=== PATIENT | female | born 1960 | race Caucasian/White ===

== ENCOUNTER 2016-07-07 17:31 | Inpatient (IN) ==
--- NOTE | 2016-07-07 18:07 | Emergency Department Note ---
Disposition Clinical Impression: Abnormal EKG, Elevated troponin Chest pain Qualifiers: Chest pain type: unspecified Qualified Code(s): R07.9 - Chest pain, unspecified Dyspnea Qualifiers: Dyspnea type: unspecified Qualified Code(s): R06.00 - Dyspnea, unspecified Disposition: Admitted As Inpatient Condition: Fair Time of Disposition: 18:58 Chest Pain HPI - General Chief Complaint: ED Chest Pain Stated Complaint: chest pain Time Seen by Provider: 07/07/16 17:46 Source: patient Mode of arrival: ambulatory Limitations: no limitations Vital Signs Reviewed: Yes Nursing Notes Reviewed: Yes - History of Present Illness HPI Narrative: Patient is a 56-year-old female with past medical history of CVA, CAD, previous SC, stent 6, diabetes, hypertension, hyperlipidemia. She presents today due to chest pain and shortness of breath. Patient has been having shortness of breath for the past week and centered chest pressure. She admits to radiation under both arms. Also admits to sweating. Denies any nausea, vomiting, fevers , abdominal pain, dysuria, hematuria. She took 325 mg aspirin prior to arrival. She did not take any nitroglycerin at home because she states that it makes her blood pressure go too low. Severity scale (1-10): 10 - Related Data Home Medications Medication Instructions Recorded Confirmed Amitriptyline [Elavil] 25 mg PO BID 01/14/15 07/07/16 Clopidogrel [Plavix] 75 mg PO DAILY 01/14/15 07/07/16 Ezetimibe [Zetia] 10 mg PO DAILY 01/14/15 07/07/16 Furosemide [Lasix] 40 mg PO DAILY 01/14/15 07/07/16 GlipiZIDE [Glucotrol] 5 mg PO DAILY 01/14/15 07/07/16 Isosorbide MONOnitrate (24 HR) 30 mg PO DAILY 01/14/15 07/07/16 [Imdur] LORazepam [Ativan] 1 mg PO BID 01/14/15 07/07/16 Metoprolol XL (24 HR) Succ [Toprol 25 mg PO DAILY 01/14/15 07/07/16 XL] Pantoprazole Sodium [Protonix] 40 mg PO DAILY 01/14/15 07/07/16 Ranolazine [Ranexa] 1,000 mg PO BID 01/14/15 07/07/16 Rosuvastatin [Crestor] 20 mg PO HS 01/14/15 07/07/16 Topiramate [Topamax] 200 mg PO BID 01/14/15 07/07/16 Ammonium Lactate [Ammonium Lactate] 1 appl TP BID 07/07/16 07/07/16 Cholecalciferol (Vitamin D3) 2,000 unit PO DAILY 07/07/16 07/07/16 [Vitamin D] Potassium Chloride [K-Tab ER] 20 meq PO DAILY 07/07/16 07/07/16 Doxycycline Hyclate [Vibramycin] 100 mg PO BID 07/08/16 07/08/16 Allergies Allergy/AdvReac Type Severity Reaction Status Date / Time metformin Allergy Anaphylaxis Verified 08/12/15 20:36 sulfamethoxazole Allergy Hives Verified 07/07/16 17:38 [From Bactrim] trimethoprim [From Bactrim] Allergy Hives Verified 07/07/16 17:38 nitroglycerin AdvReac Hypotension Verified 08/12/15 20:36 [From Nitroglyn] NOVACAINE Allergy Hives Uncoded 08/12/15 20:36 All systems ED: reviewed and negative except as stated. Constitutional: Denies: fever Cardiovascular: Reports: chest pain, dyspnea on exertion. Denies: palpitations Respiratory: Reports: dyspnea. Denies: cough, wheezes Gastrointestinal: Denies: abdominal pain, nausea, vomiting, diarrhea Musculoskeletal: Denies: back pain Integumentary: Denies: rash Neurological: Denies: headache, weakness, numbness, paresthesias Chest Pain PMH - Past Medical History Medical history: Reports: CVA, diabetes, GI bleed, hyperlipidemia, hypertension , myocardial infarction Surgical history: Reports: cholecystectomy, coronary bypass (CABG), hysterectomy Psychiatric history: Reports: no psych history - Social History Smoking Status: Former smoker Alcohol use: Reports: none Drug use: Reports: none Physical Exam - General Limitations: no limitations General appearance: alert, in no apparent distress - Head Head exam: atraumatic, normocephalic, normal inspection - Eye Eye exam: Present: normal appearance, PERRL, EOMI - ENT ENT exam: normal exam, normal oropharynx, mucous membranes moist - Neck Neck exam: Present: normal inspection, full ROM, trachea midline - Respiratory Respiratory exam: Present: normal lung sounds bilaterally - Cardiovascular Cardiovascular exam: Present: regular rate, normal rhythm, normal heart sounds - Abdominal Exam Abdominal exam: Present: soft, Non-Tender. Absent: tenderness, distention, guarding, rebound, rigidity - Extremities Exam Extremities exam: Present: normal inspection, full ROM. Absent: tenderness, pedal edema - Neurological Exam Neurological exam: Present: alert, oriented X3 - Psychiatric Psychiatric exam: Present: normal affect, normal mood - Skin Skin exam: Present: warm, dry, intact, normal color Course Course Narrative: Patient mildly tachycardic, mildly hypertensive. Physical exam was benign. Patient rates her current pain a 2 out of 10. She is declined any nitroglycerin. She is also declined any morphine at this time. She had an EKG performed which showed ST depression in V4, V5, also new T-wave changes in lead V2, V3. She is alert and aspirin 325 mg today. We will obtain cardiac workup including basic blood work, troponin, chest x-ray. Discussed admission with the patient already due to chest pain or shortness of breath with EKG changes. She is agreeable with this plan. Assuming trop negative before workup, HEART score is 5. 18:56 troponin elevated at 0.12. Astrophysics Professor on-call, Dr. Lubin, was contacted. He recommended starting heparin at this time. Patient was informed of results and she has requested morphine, we will give her morphine 4 mg. However, she continues to decline any nitroglycerin at this time. Chest x-ray negative for any acute cardiopulmonary process but did show left lung nodule. We will admit to medicine with cardiology to consult. Vital Signs Temperature 98.2 F 07/07/16 17:34 Pulse Rate 105 07/07/16 17:34 Respiratory Rate 18 07/07/16 17:34 Blood Pressure 142/88 07/07/16 17:34 O2 Sat by Pulse Oximetry 99 07/07/16 17:34 Temperature 97.5 F L 07/08/16 08:29 Pulse Rate 83 07/08/16 08:29 Respiratory Rate 15 07/08/16 08:29 Blood Pressure 127/81 07/08/16 08:29 O2 Sat by Pulse Oximetry 99 07/08/16 08:29 Oxygen Delivery Oxygen Delivery Room Air Chest Pain - [facility] Narrative Medical decision making narrative: Patient mildly tachycardic, mildly hypertensive. Physical exam was benign. Patient rates her current pain a 2 out of 10. She is declined any nitroglycerin. She is also declined any morphine at this time. She had an EKG performed which showed ST depression in V4, V5, also new T-wave changes in lead V2, V3. She is alert and aspirin 325 mg today. We will obtain cardiac workup including basic blood work, troponin, chest x-ray. Discussed admission with the patient already due to chest pain or shortness of breath with EKG changes. She is agreeable with this plan. Assuming trop negative before workup, HEART score is 5. 18:56 troponin elevated at 0.12. Astrophysics Professor on-call, Dr. Lubin, was contacted. He recommended starting heparin at this time. Patient was informed of results and she has requested morphine, we will give her morphine 4 mg. However, she continues to decline any nitroglycerin at this time. Chest x-ray negative for any acute cardiopulmonary process but did show left lung nodule. We will admit to medicine with cardiology to consult. - Medical Records Medical records reviewed: Yes I reviewed the patient's medical records. - Lab Data Lab results reviewed: Yes I reviewed the patient's lab results. Result diagrams: 07/08/16 05:40 07/08/16 05:40 Lab Results 07/07/16 07/07/16 07/07/16 Range/Units 18:02 18:02 18:02 WBC 8.4 (4.3-11.1) K/mcL RBC 4.05 (3.82-4.97) M/mcL Hgb 12.6 (11.5-15.4) g/dL Hct 37.6 (35.3-44.9) % MCV 92.8 (83.0-100.0) fL MCH 31.1 (28.0-33.3) pg MCHC 33.5 (31.6-35.5) g/dL RDW 13.3 (11.5-14.5) % Plt Count 209 (140-400) K/mcL MPV 9.5 (9.4-12.4) fL Immature Gran % 0.1 (0-4) % Seg Neutrophils % 47.5 % Lymphocytes % 42.5 % Monocytes % 7.2 % Eosinophils % 2.2 % Basophils % 0.5 % Neutrophils # 4.0 (1.6-8.9) K/mcL Lymphocytes # 3.6 (0.6-4.6) K/mcL Monocytes # 0.6 (0.0-1.3) K/mcL Eosinophils # 0.2 (0.0-0.6) K/mcL Basophils # 0.0 (0.0-0.2) K/mcL PT 11.2 (9.4-12.1) Seconds INR 1.0 APTT 29.7 (26.0-36.0) Seconds Sodium 142 (136-145) mEq/L Potassium 3.6 (3.5-4.5) mEq/L Chloride 114 H (98-109) mEq/L Carbon Dioxide 20 (19-29) mEq/L BUN 35 H (7-20) mg/dL Creatinine 1.28 H (0.57-1.11) mg/dL Est GFR ( Amer) 52 L (> 60) Est GFR (Non-Af Amer) 43 L (> 60) BUN/Creatinine Ratio 27 H (6-26) Glucose 142 H (70-99) mg/dL Calculated Osmolality 304 H (280-300) Calcium 9.2 (8.6-10.8) mg/dL Phosphorus 3.0 (2.3-4.7) mg/dL Magnesium 2.0 (1.6-2.6) mg/dL Troponin I (0-0.03) ng/mL B-Natriuretic Peptide (0-100) pg/mL 07/07/16 07/07/16 Range/Units 18:02 18:02 WBC (4.3-11.1) K/mcL RBC (3.82-4.97) M/mcL Hgb (11.5-15.4) g/dL Hct (35.3-44.9) % MCV (83.0-100.0) fL MCH (28.0-33.3) pg MCHC (31.6-35.5) g/dL RDW (11.5-14.5) % Plt Count (140-400) K/mcL MPV (9.4-12.4) fL Immature Gran % (0-4) % Seg Neutrophils % % Lymphocytes % % Monocytes % % Eosinophils % % Basophils % % Neutrophils # (1.6-8.9) K/mcL Lymphocytes # (0.6-4.6) K/mcL Monocytes # (0.0-1.3) K/mcL Eosinophils # (0.0-0.6) K/mcL Basophils # (0.0-0.2) K/mcL PT (9.4-12.1) Seconds INR APTT (26.0-36.0) Seconds Sodium (136-145) mEq/L Potassium (3.5-4.5) mEq/L Chloride (98-109) mEq/L Carbon Dioxide (19-29) mEq/L BUN (7-20) mg/dL Creatinine (0.57-1.11) mg/dL Est GFR ( Amer) (> 60) Est GFR (Non-Af Amer) (> 60) BUN/Creatinine Ratio (6-26) Glucose (70-99) mg/dL Calculated Osmolality (280-300) Calcium (8.6-10.8) mg/dL Phosphorus (2.3-4.7) mg/dL Magnesium (1.6-2.6) mg/dL Troponin I 0.12 H* (0-0.03) ng/mL B-Natriuretic Peptide 39 (0-100) pg/mL - Radiology Data Radiology results reviewed: Yes I reviewed the patient's radiology results. Chest X-Ray 07/07/16 17:49 IMPRESSION: 1. No evidence of acute cardiopulmonary disease. 2. Left lower lobe nodule, present on CT scan in 2013. Ensure appropriate follow-up has occurred based on the recommendations on the prior CT scan. If no follow-up has been performed, a CT scan of the chest may be of benefit. 3. Hiatal hernia. D/ / Chacorta Rutherford MD / Chacorta Rutherford MD Interpreting Provider: Chacorta Rutherford MD - EKG Data EKG attestation: Yes I reviewed and interpreted this EKG. EKG results narrative: 07/07/2016 at 17:34. Sinus tachycardia. Rate 111. NJ 144. QRS 105. QTC 402. Normal axis. New ST depression in V4, V5, new T-wave changes in V2, V3. Previous EKG was 01/14/2015 Heart Score - Score History: Moderately Suspicious EKG: Non Specific repolarisation Disturbance Age: 45-65 Risk Factors: Equal/Greater than 3 risk factor or history of atherosclerotic disease Troponin: Less than normal limit HEART Score Total: 5 S.B.A.R. - [email or web address].AJoel Situation: Demographics, MOA Background: Presenting Complaint, Relevant PMH, Meds, & Allergies Assessment: Vital Signs, Course and respsone to treatment, Exam Concerns, Patient/Family Expectation, Pertinant Lab Results, Outstanding Labs Recommendation: Barrier(s) to disposition, Recommendation based on pending studies, treatments, or consults S.B.A.RLois Report Given to: Dr. Shani Vee Repor Time: 18:59 Attestation Statement - Attestation Attestation: I examined this patient and my medical decision-making was reviewed with the FUR STRETCHER/PA/Advanced Practice Nurse/Resident Physician. I agree with the documented findings, disposition and treatment plan as described except to the extent set forth below. Patient emergency department with chest pain. Intermittent exertional. She has an extensive cardiac history with her last catheterization a couple of years ago. On examination she is in no acute distress with stable vital signs. Her initial EKG shows some new anterolateral depressions. Plan. Cardiac workup. Patient has positive troponin. She has been discussed with cardiology. Heparin ordered. Patient admitted to medicine. 30 minutes critical-care exclusive of separately billable procedures.
[2016-07-07 18:09] LABS: Basophils % 0.5 %; Eosinophils # 0.2 K/mcL (0.0-0.6); Eosinophils % 2.2 %; Hematocrit 37.6 % (35.3-44.9); Hemoglobin 12.6 g/dL (11.5-15.4); Immature Granulocytes % 0.1 % (0-4); Lymphocytes # 3.6 K/mcL (0.6-4.6); Lymphocytes % 42.5 %; Mean Corpuscular HGB Conc 33.5 g/dL (31.6-35.5); Mean Corpuscular Hemoglobin 31.1 pg (28.0-33.3); Mean Corpuscular Volume 92.8 fL (83.0-100.0); Mean Platelet Volume 9.5 fL (9.4-12.4); Monocytes # 0.6 K/mcL (0.0-1.3); Monocytes % 7.2 %; Platelet Count 209 K/mcL (140-400); Red Blood Count 4.05 M/mcL (3.82-4.97); Red Cell Distribution Width 13.3 % (11.5-14.5); Segmented Neutrophils % 47.5 %
[2016-07-07 18:16] LABS: Prothrombin Time 11.2 Seconds (9.4-12.1)
[2016-07-07 18:19] LABS: Activated Partial Thrombo Time 29.7 Seconds (26.0-36.0)
[2016-07-07 18:21] LABS: Calcium 9.2 mg/dL (8.6-10.8); Potassium 3.6 mEq/L (3.5-4.5)
[2016-07-07] MEDS ORDERED: *HR* Heparin 5,000 UNIT/ML VIAL IVP PRN ×2 (18:53)
[2016-07-07] MEDS ORDERED: *HR* Heparin 5,000 UNIT/ML VIAL IVP ONE (18:53)
[2016-07-07] MEDS ORDERED: *HR* Morphine 2 MG/ML SYRINGE IVP ONE (19:00)
[2016-07-07] MEDS ORDERED: Heparin 25,000 UNIT/500 ML D5W 25,000 UNIT/500 ML MLS IVC SCH (19:00)
[2016-07-07] MEDS ORDERED: Acetaminophen 325 MG TABLET PO PRN (20:13)
[2016-07-07] MEDS ORDERED: Naloxone 0.4 MG/ML INJ IVP PRN (20:13)
[2016-07-07] MEDS ORDERED: Dextrose Gel 15 GM PO PRN ×2 (20:13)
[2016-07-07] MEDS ORDERED: Pantoprazole 40 MG VIAL IVP STA (20:13)
[2016-07-07] MEDS ORDERED: *HR* OxyCODONE Immed Rel 5 MG TABLET PO PRN (20:13)
[2016-07-07] MEDS ORDERED: *HR* Promethazine 25 MG/ML VIAL IVP PRN (20:13)
[2016-07-07] MEDS ORDERED: *HR* Metoprolol 5 MG/5 ML VIAL IVP PRN (20:13)
[2016-07-07] MEDS ORDERED: *HR* Dextrose 50 % in Water (Syg) 50 ML SYRINGE IVP PRN (20:13)
[2016-07-07] MEDS ORDERED: Nitroglycerin 0.4 MG TAB.SUBL SL PRN (20:13)
[2016-07-07] MEDS ORDERED: D5% in Water 1,000 ML IVC PRN (20:13)
[2016-07-07] MEDS ORDERED: Mag Hydrox/Al Hydrox/Simeth 30 ML UDC PO PRN (20:13)
--- NOTE | 2016-07-07 20:30 | Internal Med History&Physical ---
Date of Encounter: 07/07/16 Time of Encounter: 21:00 Assessment and Plan (1) Chest pain, rule out acute myocardial infarction Current visit: Yes Status: Acute . (2) Chest pain with moderate risk of acute coronary syndrome Current visit: Yes Status: Acute . (3) Elevated troponin I measurement Current visit: Yes Status: Acute . (4) CAD (coronary artery disease), [place] coronary artery Current visit: Yes Status: Chronic . Qualifiers: [place] vs. transplanted heart: [place] heart Associated angina: with unspecified angina Qualified Code(s): I25.119 - Atherosclerotic heart disease of [place] coronary artery with unspecified angina pectoris (5) History of PTCA Current visit: Yes Status: Chronic . (6) Hx of CABG Current visit: Yes Status: Chronic . (7) HTN (hypertension) Current visit: Yes Status: Chronic . Qualifiers: Hypertension type: essential hypertension Qualified Code(s): I10 - Essential (primary) hypertension (8) HLD (hyperlipidemia) Current visit: Yes Status: Chronic . Qualifiers: Hyperlipidemia type: mixed hyperlipidemia Qualified Code(s): E78.2 - Mixed hyperlipidemia (9) Type 2 diabetes mellitus Current visit: Yes Status: Chronic . Qualifiers: Diabetes mellitus complication status: with unspecified complications Diabetes mellitus terminal gauger supervisor insulin use: without alf use Qualified Code( s): E11.8 - Type 2 diabetes mellitus with unspecified complications (10) ESAU (acute kidney injury) Current visit: Yes Status: Acute . (11) Solitary pulmonary nodule Current visit: Yes Status: Chronic . (12) Anxiety as acute reaction to gross stress Current visit: Yes Status: Acute . (13) Anxiety associated with depression Current visit: Yes Status: Acute . (14) Nicotine dependence with nicotine-induced disorder Current visit: Yes Status: Chronic . Qualifiers: Nicotine product type: cigarettes Qualified Code(s): F17.219 - Nicotine dependence, cigarettes, with unspecified nicotine-induced disorders (15) COPD mixed type Current visit: Yes Status: Chronic . Internal Medicine - H&P: HPI Chief complaint: Chest pain. Difficulty breathing. Admitted From: Emergency Dept Plans for Post Hospital Care: Home History of present illness: Ms. Leonardo is a 56 year old female with significant history of COPD/PTCA-stents x6/CABG x3v/AMI, CVA/TIA, type II DM, HTN, HLD, CKD, h/o cervical Ca s/p DANIS, OA , OP/vit D def, h/o hidradenitis suppurativa, solitary pulmonary nodule, GERD, depression/anxiety, obesity, nicotine dependency, etc.. Patient is admitted to the [facility] via the emergency department which presents with complaints of chest pain. The patient presents with a significant history of atherosclerotic cardiovascular disease. She reports chest pain and shortness of breath intermittently, beginning in the last 5-7 days and progressively worsening. She presents today with central chest pressure like pain radiating into both arms associated with shortness of breath and diaphoresis. She denies any nausea or vomiting. Denies abdominal pain flank pain. Denies any fevers chills. Denies dysuria hematuria upper respiratory lower respiratory symptoms of cough or sputum production. Pain was severe was rated as a 10/10 in severity. Chest pain and dyspnea worsened with exertion. Nothing seemed to alleviate pain however when present. She took a full dose adult aspirin prior to her presentation to the ER. She also had taken her normal daily cardiac medications. These treatments included Ranexa Lipitor fish oil into her Toprol- XL Plavix aspirin Zetia. She did not take any sublingual nitroglycerin to address acute pain due to fear of acute hypotension which has happened in the past with this medication. The patient acknowledges significant in increase in gross personal stressors. This is cause some degree of constant worry and personal concerns as relates to herself and family. she focuses much of her current anxiety toward her estranged . Specifics are not disclosed. Findings in the ED noted the patient afebrile. Pulse 105 respirations 18 BP 142/88 O2 saturation 99% on room air. Telemetry demonstrated sinus tachycardia. Rate 111 bpm. EKG interpreted by ED staff suggested ST depression in V4 and V5, T-wave changes in lead V2 V3. Suggestive of ischemia. His EKG of record December 2014. Troponin returned to 0.12. WBC 8.4 hemoglobin 12.6 platelets 209,000. Differential normal. PT 11.2 INR 1 PTT 29.7. Metabolic panel benign except noted BUN 35 creatinine 1.2 weight 204 43. Glucose 142 osmolality 304. Chloride 114. Chest x-ray demonstrated no evidence of acute or active cardiopulmonary process. A left lower lobe nodule previously delineated on CT scanning in 2013 was noted. Hiatal hernia noted. Cardiology was consulted by ED staff and recommended initiation of intravenous heparin therapy and admission to complete the standard rule out for ACS/UA. The patient presents risk of further acute clinical decline and morbidity given her presenting chief complaints and comorbid conditions. Workup and treatments will proceed comprehensively. The patient was visited and interviewed and examined. Cumulative laboratory and radiographic data base was reviewed and considered. Consultative opinions will be sought as clinical circumstances justify. Initial consultative opinion has been requested and cardiology. Acute coronary syndrome/UA treatment protocols/surveillance initiated. Intravenous heparin drip initiated. In place of intravenous nitroglycerin drip , intravenous diltiazem drip will be provided to address unstable angina and nitrate hypersensitivity. Plan of care has been discussed in detail with patient. Questions were addressed. Hospital course will be dependent upon clinical findings, treatment response and potential consultative interventions. Given the patient's presenting concerns, past medical history, clinical findings and symptoms, she is admitted at this time to undergo further evaluation and disposition. Orders were written as per the computerized physician line ordering clinician system. Condition is serious. Prognosis is guarded. CODE STATUS is full. . Past Med Surg Social Fam HX - Past Medical History Source: old records reviewed Medical history: arthritis, cancer, CHF, COPD, coronary artery disease, CVA, diabetes, GERD, GI bleed, hyperlipidemia, hypertension, malignancy, myocardial infarction, TIA, other Psychiatric history: anxiety, depression, other - Past Surgical History Surgical History: angioplasty/stent, breast surgery, cancer surgery, cholecystectomy, coronary bypass (CABG), hysterectomy, other - Social History Smoking Status: Current every day smoker Packs per day: 1-2ppd x20+yrs Smokeless Tobacco Status: No Alcohol use: none, unknown Drug use: none Occupational status: unemployed Current living situation: Home, With Family Activity Level: Independent ambulation, Mostly sedentary Recent Out of Country Travel Within the Last 8 Weeks: No Exposure or Possible Exposure to Illness During Travel: No Internal Medicine - H&P: Meds Amitriptyline [Elavil] 25 mg PO BID 01/14/15 [History] Clopidogrel [Plavix] 75 mg PO DAILY 01/14/15 [History] Ezetimibe [Zetia] 10 mg PO DAILY 01/14/15 [History] Furosemide [Lasix] 40 mg PO DAILY 01/14/15 [History] GlipiZIDE [Glucotrol] 5 mg PO DAILY 01/14/15 [History] Isosorbide MONOnitrate (24 HR) [Imdur] 30 mg PO DAILY 01/14/15 [History] LORazepam [Ativan] 1 mg PO BID 01/14/15 [History] Metoprolol XL (24 HR) Succ [Toprol XL] 25 mg PO DAILY 01/14/15 [History] Pantoprazole Sodium [Protonix] 40 mg PO DAILY 01/14/15 [History] Ranolazine [Ranexa] 1,000 mg PO BID 01/14/15 [History] Rosuvastatin [Crestor] 20 mg PO HS 01/14/15 [History] Topiramate [Topamax] 200 mg PO BID 01/14/15 [History] Alirocumab [Praluent Pen] 75 mg SQ Q2W 07/07/16 [History] Ammonium Lactate [Ammonium Lactate] 1 appl TP BID 07/07/16 [History] Cholecalciferol (Vitamin D3) [Vitamin D] 2,000 unit PO DAILY 07/07/16 [History] Potassium Chloride [K-Tab ER] 20 meq PO DAILY 07/07/16 [History] Allergies metformin Allergy (Verified 08/12/15 20:36) Anaphylaxis sulfamethoxazole [From Bactrim] Allergy (Verified 07/07/16 17:38) Hives trimethoprim [From Bactrim] Allergy (Verified 07/07/16 17:38) Hives nitroglycerin [From Nitroglyn] Adverse Reaction (Verified 08/12/15 20:36) Hypotension NOVACAINE Allergy (Uncoded 08/12/15 20:36) Hives All Systems PM: A 10-system review of systems was performed and is negative for pertinent findings except as documented above in the HPI. - Constitutional Constitutional: as per HPI, fatigue, malaise, other, no chills, no fever(s), no night sweats - EENT Eyes: as per HPI, no change in vision, no discharge, no pain, no photophobia Ears: as per HPI, no ear discharge, no ear pain, no tinnitus Nose, mouth and throat: as per HPI, no dysphagia, no nasal discharge, no neck pain, no sore throat - Cardiovascular Cardiovascular ROS IM: as per HPI, chest pain, diaphoresis, dyspnea, dyspnea on exertion, lightheadedness, other, no edema, no palpitations, no syncope - Respiratory Respiratory: as per HPI, dyspnea, dyspnea on exertion, snoring, other, no cough , no hemoptysis, no wheezing, no excessive phlegm production - Gastrointestinal Gastrointestinal: as per HPI, no abdominal pain, no diarrhea, no hematemesis, no hematochezia, no melena, no nausea, no vomiting - Genitourinary Genitourinary: as per HPI, no change in urinary stream, no dysuria, no flank pain, no hematuria Menstruation: as per HPI, post hysterectomy, other - Musculoskeletal Musculoskeletal ROS IM: as per HPI, no numbness, no tingling - Integumentary Integumentary IM: as per HPI, no rash, no unusual bruising - Neurological Neurological ROS: as per HPI, no confusion, no convulsions, no focal weakness, no numbness, no tingling, no tremor(s) - Psychiatric Psychiatric: as per HPI, anxiety, depression, other - Endocrine Endocrine IM: as per HPI - Hematologic/Lymphatic Hematologic/Lymphatic: as per HPI, no easy bruising - Allergic/Immunologic Allergic/Immunologic: as per HPI - Constitutional Vitals: Temp Pulse Resp BP Pulse Ox 98.2 F 105 18 118/75 99 07/07/16 20:12 07/07/16 17:34 07/07/16 20:12 07/07/16 20:12 07/07/16 17:34 Vital Signs Temp Pulse Resp BP Pulse Ox 07/07/16 20:58 98.4 F 84 20 130/86 100 07/07/16 20:12 98.2 F 18 118/75 07/07/16 17:34 98.2 F 105 18 142/88 99 Intake and Output 07/07/16 07/07/16 07/07/16 07:59 15:59 23:59 Intake Total 0 / 0 Balance 0 / 0 Intake: Oral 0 / 0 Other: Weight 79.8 kg Blood Glucose* 87 Patient Weight 07/07/16 23:59 Weight 79.8 kg General appearance: Present: cooperative, mild distress, A&O X 3, obese, answers questions appropriately - Head Head exam: Present: atraumatic, normal inspection, normocephalic - Eye Eye exam: Present: EOMI, PERRL, conjuntiva pink, sclera anicteric Pupils: Present: normal accommodation, PERRL - ENT ENT exam: Present: mucous membranes moist, normal external ear exam, normal oropharynx - Neck Neck exam general surgery: Present: full ROM, supple, trachea midline. Absent: lymphadenopathy, nuchal rigidity - Respiratory Respiratory exam: Present: decreased breath sounds, prolonged expiratory phase. Absent: accessory muscle use, CTAB, rales, rhonchi, stridor, wheezes - Cardiovascular Cardiovascular exam: Present: distant heart sounds, RRR, +S1, +S2. Absent: diastolic murmur, gallop, rubs, systolic murmur - GI/Abdominal GI/Abdominal exam: Present: normal bowel sounds, soft, no peritoneal signs. Absent: distended, tenderness - Extremities Exam Extremities exam: Present: full ROM, warm, radial pulses palpable and symetrical. Absent: calf tenderness, cyanotic, pedal edema - Neurological Exam Neurological exam: Present: alert, CN II-XII intact, oriented X3, no focal deficits. Absent: pronater drift, facial droop, speech deficit - Psychiatric Psychiatric exam: Present: anxious, normal affect, normal mood - Skin Skin exam: Present: dry, intact, warm. Absent: petechiae, rash, urticaria, vesicles Internal Med - H&P Results - Labs CBC & Chem 7: 07/07/16 18:02 07/07/16 18:02 Labs: Short CBC 07/07/16 Range/Units 18:02 WBC 8.4 (4.3-11.1) K/mcL Hgb 12.6 (11.5-15.4) g/dL Hct 37.6 (35.3-44.9) % Plt Count 209 (140-400) K/mcL Neutrophils # 4.0 (1.6-8.9) K/mcL BMP 07/07/16 Range/Units 18:02 Sodium 142 (136-145) mEq/L Potassium 3.6 (3.5-4.5) mEq/L Chloride 114 H (98-109) mEq/L Carbon Dioxide 20 (19-29) mEq/L BUN 35 H (7-20) mg/dL Creatinine 1.28 H (0.57-1.11) mg/dL Glucose 142 H (70-99) mg/dL Calcium 9.2 (8.6-10.8) mg/dL Cardiac Enzymes 07/07/16 Range/Units 18:02 Troponin I 0.12 H* (0-0.03) ng/mL Abnormal lab results Chloride 114 mEq/L (98-109) H 07/07/16 18:02 BUN 35 mg/dL (7-20) H 07/07/16 18:02 Creatinine 1.28 mg/dL (0.57-1.11) H 07/07/16 18:02 Est GFR ( Amer) 52 (> 60) L 07/07/16 18:02 Est GFR (Non-Af Amer) 43 (> 60) L 07/07/16 18:02 BUN/Creatinine Ratio 27 (6-26) H 07/07/16 18:02 Glucose 142 mg/dL (70-99) H 07/07/16 18:02 Calculated Osmolality 304 (280-300) H 07/07/16 18:02 Troponin I 0.12 ng/mL (0-0.03) H* 07/07/16 18:02 Laboratory Results WBC 8.4 K/mcL (4.3-11.1) 07/07/16 18:02 RBC 4.05 M/mcL (3.82-4.97) 07/07/16 18:02 Hgb 12.6 g/dL (11.5-15.4) 07/07/16 18:02 Hct 37.6 % (35.3-44.9) 07/07/16 18:02 MCV 92.8 fL (83.0-100.0) 07/07/16 18:02 MCH 31.1 pg (28.0-33.3) 07/07/16 18:02 MCHC 33.5 g/dL (31.6-35.5) 07/07/16 18:02 RDW 13.3 % (11.5-14.5) 07/07/16 18:02 Plt Count 209 K/mcL (140-400) 07/07/16 18:02 MPV 9.5 fL (9.4-12.4) 07/07/16 18:02 Immature Gran % 0.1 % (0-4) 07/07/16 18:02 Seg Neutrophils % 47.5 % 07/07/16 18:02 Lymphocytes % 42.5 % 07/07/16 18:02 Monocytes % 7.2 % 07/07/16 18:02 Eosinophils % 2.2 % 07/07/16 18:02 Basophils % 0.5 % 07/07/16 18:02 Neutrophils # 4.0 K/mcL (1.6-8.9) 07/07/16 18:02 Lymphocytes # 3.6 K/mcL (0.6-4.6) 07/07/16 18:02 Monocytes # 0.6 K/mcL (0.0-1.3) 07/07/16 18:02 Eosinophils # 0.2 K/mcL (0.0-0.6) 07/07/16 18:02 Basophils # 0.0 K/mcL (0.0-0.2) 07/07/16 18:02 PT 11.2 Seconds (9.4-12.1) 07/07/16 18:02 INR 1.0 07/07/16 18:02 APTT 29.7 Seconds (26.0-36.0) 07/07/16 18:02 Sodium 142 mEq/L (136-145) 07/07/16 18:02 Potassium 3.6 mEq/L (3.5-4.5) 07/07/16 18:02 Chloride 114 mEq/L (98-109) H 07/07/16 18:02 Carbon Dioxide 20 mEq/L (19-29) 07/07/16 18:02 BUN 35 mg/dL (7-20) H 07/07/16 18:02 Creatinine 1.28 mg/dL (0.57-1.11) H 07/07/16 18:02 Est GFR ( Amer) 52 (> 60) L 07/07/16 18:02 Est GFR (Non-Af Amer) 43 (> 60) L 07/07/16 18:02 BUN/Creatinine Ratio 27 (6-26) H 07/07/16 18:02 Glucose 142 mg/dL (70-99) H 07/07/16 18:02 Calculated Osmolality 304 (280-300) H 07/07/16 18:02 Calcium 9.2 mg/dL (8.6-10.8) 07/07/16 18:02 Phosphorus 3.0 mg/dL (2.3-4.7) 07/07/16 18:02 Magnesium 2.0 mg/dL (1.6-2.6) 07/07/16 18:02 Troponin I 0.12 ng/mL (0-0.03) H* 07/07/16 18:02 B-Natriuretic Peptide 39 pg/mL (0-100) 07/07/16 18:02 Impressions Chest X-Ray 07/07/16 17:49 IMPRESSION: 1. No evidence of acute cardiopulmonary disease. 2. Left lower lobe nodule, present on CT scan in 2013. Ensure appropriate follow-up has occurred based on the recommendations on the prior CT scan. If no follow-up has been performed, a CT scan of the chest may be of benefit. 3. Hiatal hernia. D/ / Chacorta Rutherford MD / Chacorta Rutherford MD Interpreting Provider: Chacorta Rutherford MD
[2016-07-07] MEDS ORDERED: Benzonatate 100 MG CAPSULE PO PRN (21:07)
[2016-07-07] MEDS ORDERED: Ipratropium/Albuterol Neb 3 ML IH PRN (21:07)
[2016-07-07 21:39] LABS: Bilirubin,Urine Negative (Negative); Blood,Urine Negative (Negative); Color,Urine Yellow (Yellow); Glucose,Urine (UA) Normal (Normal); Ketones,Urine Negative (Negative); Leukocyte Esterase,Urine Negative (Negative); Nitrite,Urine Negative (Negative); PH,Urine 7.5 pH Units (5.0-8.0); Protein,Urine Trace mg/dL (Neg-Trace); Specific Gravity,Urine 1.024 (1.010-1.025); Urobilinogen,Urine Normal (Normal)
[2016-07-07 21:40] LABS: Bacteria,Urine None Seen per hpf (None-Few); Hyaline Casts,Urine None Seen per lpf (None-Few); Squamous Epithelial Cell,Urine Many per lpf (None-Few)
[2016-07-07 21:43] LABS: Clarity,Urine Hazy (Clear)
[2016-07-07] MEDS: *HR* Morphine 2 MG/ML SYRINGE IVP PRN (22:25)
[2016-07-07] MEDS: Topiramate 100 MG TABLET PO SCH (22:29)
[2016-07-07] MEDS: Ranolazine 500 MG TAB.ER.12H PO SCH (22:29)
[2016-07-07] MEDS: *HR* LORazepam 1 MG TABLET PO SCH (22:30)
[2016-07-07] MEDS: Ammonium Lactate 30 APPL/225 GM BOTTLE TP SCH (22:31)
[2016-07-07] MEDS ORDERED: *HR* LORazepam 2 MG/ML VIAL IVP STA (22:31)
[2016-07-07] MEDS ORDERED: Albuterol 2.5 MG/3 ML NEBULIZER IH PRN (22:32)
[2016-07-07] MEDS: Nicotine 21 MG PATCH.TD24 TD PRN (22:34)
[2016-07-07] MEDS: Insulin LISPRO 300 UNITS/3 ML VIAL SQ SCH (22:36)
[2016-07-07] MEDS: 0.9 % Sodium Chloride 1,000 ML IVC SCH (22:37)
[2016-07-07] MEDS ORDERED: 0.9 % Sodium Chloride 500 ML IVC ONE (22:42)
[2016-07-07] MEDS: Ipratropium/Albuterol Neb 3 ML IH SCH (23:34)
[2016-07-08] MEDS: Melatonin 3 MG TABLET PO SCH ×2 (00:05→20:34)
[2016-07-08] MEDS: Ipratropium/Albuterol Neb 3 ML IH SCH ×4 (04:31→22:32)
[2016-07-08 05:57] LABS: VBG HCO3 22.6 mEq/L (21-27); VBG PH 7.23 pH Units (7.32-7.42)
[2016-07-08 05:59] LABS: Hematocrit 38.5 % (35.3-44.9); Hemoglobin 12.3 g/dL (11.5-15.4); Mean Corpuscular HGB Conc 31.9 g/dL (31.6-35.5); Mean Corpuscular Hemoglobin 30.4 pg (28.0-33.3); Mean Corpuscular Volume 95.3 fL (83.0-100.0); Mean Platelet Volume 9.4 fL (9.4-12.4); Platelet Count 190 K/mcL (140-400); Red Blood Count 4.04 M/mcL (3.82-4.97); Red Cell Distribution Width 13.6 % (11.5-14.5)
[2016-07-08 06:08] LABS: Ionized Calcium 1.22 mmol/L (1.15-1.35)
[2016-07-08 06:09] LABS: Hemoglobin A1C 6.9 %
[2016-07-08 06:15] LABS: Alanine Aminotransferase 20 Units/L (0-55); Albumin 2.9 g/dL (3.5-5.0); Albumin/Globulin Ratio 0.9 (1.1-2.2); Alkaline Phosphatase 81 Units/L (38-126); Aspartate Amino Transferase 21 Units/L (5-34); BUN/Creatinine Ratio 23 (6-26); Bilirubin,Total 0.2 mg/dL (0.2-1.2); C-Reactive Protein 1 mg/L (Less than 5); Calcium 8.5 mg/dL (8.6-10.8); Carbon Dioxide 20 mEq/L (19-29); Chloride 115 mEq/L (98-109); Chol/HDL Ratio 6.7 (0-4.9); Cholesterol 276 mg/dL (< 200); Globulin 3.4 g/dL (2.4-3.5); Glucose 124 mg/dL (70-99); HDL Cholesterol 41 mg/dL (40-59); LDL Cholesterol,Calculated 158 mg/dL (0-99); Osmolality,Calculated 301 (280-300); Potassium 3.4 mEq/L (3.5-4.5); Sodium 143 mEq/L (136-145); Total Protein 6.3 g/dL (6.0-8.3); Triglycerides 385 mg/dL (< 150); eGFR For African Americans > 60 (> 60); eGFR For Non-African Americans 56 (> 60)
[2016-07-08 06:16] LABS: Blood Urea Nitrogen 24 mg/dL (7-20)
[2016-07-08 07:08] LABS: Thyroid Stimulating Hormone 4.742 mcIU/mL (0.350-4.840)
[2016-07-08] MEDS: Ammonium Lactate 30 APPL/225 GM BOTTLE TP SCH ×2 (08:15→20:35)
[2016-07-08] MEDS: Insulin LISPRO 300 UNITS/3 ML VIAL SQ SCH ×4 (08:40→20:35)
[2016-07-08] MEDS: Isosorbide MONOnitrate (24 HR) 30 MG TAB.ER.24H PO SCH (08:50)
[2016-07-08] MEDS: Metoprolol XL (24 HR) Succ 25 MG TAB.ER.24H PO SCH (08:50)
[2016-07-08] MEDS: Ranolazine 500 MG TAB.ER.12H PO SCH ×2 (08:50→20:37)
[2016-07-08] MEDS: Aspirin 81 MG TAB.CHEW PO SCH (08:50)
[2016-07-08] MEDS: Topiramate 100 MG TABLET PO SCH ×2 (08:50→20:34)
[2016-07-08] MEDS: *HR* LORazepam 1 MG TABLET PO SCH ×2 (08:51→20:34)
[2016-07-08] MEDS: *HR* Morphine 2 MG/ML SYRINGE IVP PRN ×3 (08:51→20:33)
[2016-07-08] MEDS ORDERED: (Ezetimibe [Zetia] 10 MG) PO SCH (09:00)
--- NOTE | 2016-07-08 09:16 | Cardiology Consult Note ---
Date of Encounter: 07/08/16 Time of Encounter: 09:11 Assessment and Plan (1) NSTEMI (non-ST elevated myocardial infarction) Current Visit: Yes Status: Acute Troponins 0.47, 0.28, 0.12. Hx of CABG and multiple PCI. Typical anginal symptoms similar to past MIs, now with unstable angina. Current CP 05/30--refuses nitro, states it makes her hypotensive. Diffuse EKG flattening/depression. Pt does report bright red blood per rectum that her PCP attributes to internal and external hemorrhoids. H&H and platelet count are stable. She is already on Plavix at home. Pt is currently on heparin gtt, ASA, Plavix, Statin, BB, nitrates. Recommend [facility]. R/B/A discussed. Pt agrees to proceed with [facility] today. Check echo. Echo 2012 EF 50%. (2) CAD (coronary artery disease) Current Visit: Yes Status: Acute Left heart catheterization 08/2012: Left Main patent stents. LAD proximal 90% stenosis. Circumflex patent stents in the proximal and midportion. Ramus 40% stenosis. RCA proximal 100% stenosis (left to right collaterals). ADAMS to mid LAD patent. SVG to RPDA patent. ASA, Plavix, Statin, BB, nitrates. [facility] today for NSTEMI. Qualifiers: Coronary Disease-Associated Artery/Lesion type: [place] artery [place] vs. transplanted heart: [place] heart Associated angina: with unstable angina Qualified Code(s): I25.110 - Atherosclerotic heart disease of [place] coronary artery with unstable angina pectoris (3) Tobacco abuse Current Visit: Yes Status: Chronic Continues to smoke 1/2 PPD. Smoking cessation counseling given. Discussion w patient/family: The assessment and plan as outlined above was discussed with the patient and/or family members who expressed understanding and agreement. All questions were answered. Thank you for involving us in the care of your patient. Please call with any questions. I will discuss all the above with Dr. Pruett and make changes as necessary. History of Present Illness Consult date: 07/08/16 Requesting physician: Shailesh Berrios Consult reason: NSTEMI Chief complaint: chest pain History of present illness: Ms. Leonardo is a 56 year old female with history of CAD, previous CABG, and multiple PCIs. Comorbidities include a prior CVA, prior GI bleed on anticoagulation, DM, HLD, and HTN. She unfortunately continues to smoke. She presented to the ED with chest and jaw pain. She reports symptoms started 1 1/2 weeks ago. She noticed she would experience mild chest pain with radiation under both arms when walking to her mailbox that would subside with rest and ASA. The pain continued to worsen and become more frequent, experiencing chest pain up to 6 times per day, usually with exertion, associated with fatigue, dyspnea and diaphoresis. She states she knows she needs to come in if the pain wakes her from sleep or she experiences jaw pain. 2 days ago chest pain woke her from deep sleep, then yesterday she experienced right jaw pain, prompting her to come in. Pain is similar to prior anginal equivalent. Troponins 0.47, 0.28, 0.12. EKG with diffuse flattening/mild depression. Pt currently experiencing chest pain 05/30, states she is unable to take nitro due to becoming hypotensive. She reports bright red blood in bowel movements that she states her PCP attributes to large internal and external hemorrhoids. Previous studies: Left heart catheterization 08/2012: Left Main patent stents. LAD proximal 90% stenosis. Circumflex patent stents in the proximal and midportion. Ramus 40% stenosis. RCA proximal 100% stenosis (left to right collaterals). ADAMS to mid LAD patent. SVG to RPDA patent. Echocardiogram 08/2012: EF 50%. No significant valvular dysfunction. Past Med Surg Social Fam HX - Past Medical History Medical history: arthritis, cancer, CHF, COPD, coronary artery disease, CVA, diabetes, GERD, GI bleed, hyperlipidemia, hypertension, malignancy, myocardial infarction, TIA, other Psychiatric history: anxiety, depression, other - Past Surgical History Surgical History: angioplasty/stent, breast surgery, cancer surgery, cholecystectomy, coronary bypass (CABG), hysterectomy, other - Social History Smoking Status: Current every day smoker Packs per day: 1-2ppd x20+yrs Smokeless Tobacco Status: No Alcohol use: none, unknown Drug use: none Medications and Allergies Amitriptyline [Elavil] 25 mg PO BID 01/14/15 [History] Clopidogrel [Plavix] 75 mg PO DAILY 01/14/15 [History] Ezetimibe [Zetia] 10 mg PO DAILY 01/14/15 [History] Furosemide [Lasix] 40 mg PO DAILY 01/14/15 [History] GlipiZIDE [Glucotrol] 5 mg PO DAILY 01/14/15 [History] Isosorbide MONOnitrate (24 HR) [Imdur] 30 mg PO DAILY 01/14/15 [History] LORazepam [Ativan] 1 mg PO BID 01/14/15 [History] Metoprolol XL (24 HR) Succ [Toprol XL] 25 mg PO DAILY 01/14/15 [History] Pantoprazole Sodium [Protonix] 40 mg PO DAILY 01/14/15 [History] Ranolazine [Ranexa] 1,000 mg PO BID 01/14/15 [History] Rosuvastatin [Crestor] 20 mg PO HS 01/14/15 [History] Topiramate [Topamax] 200 mg PO BID 01/14/15 [History] Ammonium Lactate [Ammonium Lactate] 1 appl TP BID 07/07/16 [History] Cholecalciferol (Vitamin D3) [Vitamin D] 2,000 unit PO DAILY 07/07/16 [History] Potassium Chloride [K-Tab ER] 20 meq PO DAILY 07/07/16 [History] Doxycycline Hyclate [Vibramycin] 100 mg PO BID 07/08/16 [History] Allergies metformin Allergy (Verified 08/12/15 20:36) Anaphylaxis sulfamethoxazole [From Bactrim] Allergy (Verified 07/07/16 17:38) Hives trimethoprim [From Bactrim] Allergy (Verified 07/07/16 17:38) Hives nitroglycerin [From Nitroglyn] Adverse Reaction (Verified 08/12/15 20:36) Hypotension NOVACAINE Allergy (Uncoded 08/12/15 20:36) Hives All Systems Review: A 10-system review of systems was performed and is negative for pertinent findings except as documented above in the HPI. - Constitutional Constitutional: fatigue - Cardiovascular Cardiovascular: as per HPI, chest pain at rest, chest pain with exertion, diaphoresis, dyspnea on exertion, radiating jaw, neck or arm pain - Respiratory Respiratory: dyspnea - Gastrointestinal Gastrointestinal: hematochezia Physical Examination Vital Signs, Last 4 Hours Temp Pulse Resp BP Pulse Ox 07/08/16 08:29 97.5 F L 83 15 127/81 99 07/08/16 07:54 99 Vital Signs Temp Pulse Resp BP Pulse Ox 07/08/16 08:29 97.5 F L 83 15 127/81 99 07/08/16 07:54 99 07/08/16 04:31 16 100 07/08/16 03:53 97.6 F 68 18 97/56 96 07/08/16 01:43 68 16 99/65 98 07/07/16 23:34 18 96 07/07/16 21:37 99 07/07/16 21:08 97.4 F L 74 18 125/84 97 07/07/16 20:58 98.4 F 84 20 130/86 100 07/07/16 20:12 98.2 F 18 118/75 07/07/16 17:34 98.2 F 105 18 142/88 99 Intake and Output 07/07/16 07/08/16 07/08/16 23:59 07:59 15:59 Intake Total 0 / 0 143 / 143 0 / 0 Output Total 250 / 250 0 / 0 0 / 0 Balance -250 / -250 143 / 143 0 / 0 Intake: IV Fluids 143 / 143 Cardizem 125 MG In 0 / 0 Dextrose 5% 100 ML @ 5 MG /HR 5 mls/hr IVC .Q24H MT Rx#:[id number] Heparin 25,000 UNIT/500 143 / 143 ML D5W 25,000 unit In 500 ml @ 12 UNIT/KG/HR 18. 724 mls/hr IVC .Q24H MT Rx#:[id number] Oral 0 / 0 0 / 0 0 / 0 Output: Urine 250 / 250 0 / 0 0 / 0 Other: # Voids 1 Weight 79.8 kg 79.3 kg Blood Glucose* 87 124 Patient Weight 07/08/16 23:59 Weight 79.3 kg General: Conversant, No Apparent Distress HEENT: Atraumatic, Normocephaly, Mucus Membranes Moist Neck: No JVD, Normal carotid pulses Cardiac: Reg Rate and Rhythm, Normal S1 and S2, No Murmur Lungs: Normal Breath Sounds, No Wheeze, Rales, Rhonchi Neuro: Alert and responsive, No focal deficits noted Abdomen: Soft, Non-Tender Skin: No rashes noted on visualized skin Musculoskeletal: No Chest Wall Tenderness Extremities: No Clubbing, No Cyanosis, No Edema, Normal Pulses Results 07/08/16 05:40 07/08/16 05:40 Lab Results 07/08/16 07/08/16 07/08/16 00:35 00:35 05:40 WBC 8.4 Hgb 12.3 Hct 38.5 Plt Count 190 APTT 122.3 H* D Sodium Potassium Chloride Carbon Dioxide BUN Creatinine Glucose Calcium Total Bilirubin AST ALT Alkaline Phosphatase Troponin I 0.28 H* TSH 07/08/16 07/08/16 05:40 05:40 WBC Hgb Hct Plt Count APTT Sodium 143 Potassium 3.4 L Chloride 115 H Carbon Dioxide 20 BUN 24 H D Creatinine 1.03 Glucose 124 H Calcium 8.5 L Total Bilirubin 0.2 AST 21 ALT 20 Alkaline Phosphatase 81 Troponin I 0.47 H* TSH 4.742 Short CBC 07/08/16 07/07/16 Range/Units 05:40 18:02 WBC 8.4 8.4 (4.3-11.1) K/mcL Hgb 12.3 12.6 (11.5-15.4) g/dL Hct 38.5 37.6 (35.3-44.9) % Plt Count 190 209 (140-400) K/mcL Neutrophils # 4.0 (1.6-8.9) K/mcL BMP 07/08/16 07/07/16 Range/Units 05:40 18:02 Sodium 143 142 (136-145) mEq/L Potassium 3.4 L 3.6 (3.5-4.5) mEq/L Chloride 115 H 114 H (98-109) mEq/L Carbon Dioxide 20 20 (19-29) mEq/L BUN 24 H D 35 H (7-20) mg/dL Creatinine 1.03 1.28 H (0.57-1.11) mg/dL Glucose 124 H 142 H (70-99) mg/dL Calcium 8.5 L 9.2 (8.6-10.8) mg/dL Cardiac Enzymes 07/08/16 07/08/16 07/07/16 Range/Units 05:40 00:35 18:02 Troponin I 0.47 H* 0.28 H* 0.12 H* (0-0.03) ng/mL Liver Function 07/08/16 Range/Units 05:40 Total Bilirubin 0.2 (0.2-1.2) mg/dL AST 21 (5-34) Units/L ALT 20 (0-55) Units/L Alkaline Phosphatase 81 (38-126) Units/L Albumin 2.9 L (3.5-5.0) g/dL Urine 07/07/16 Range/Units 21:25 Urine Color Yellow (Yellow) Urine Clarity Hazy A (Clear) Urine pH 7.5 (5.0-8.0) pH Units Ur Specific [place] 1.024 (1.010-1.025) Urine Protein Trace (Neg-Trace) mg/dL Urine Glucose (UA) Normal (Normal) mg/dL Impressions Chest X-Ray 07/07/16 17:49 IMPRESSION: 1. No evidence of acute cardiopulmonary disease. 2. Left lower lobe nodule, present on CT scan in 2013. Ensure appropriate follow-up has occurred based on the recommendations on the prior CT scan. If no follow-up has been performed, a CT scan of the chest may be of benefit. 3. Hiatal hernia. D/ / Chacorta Rutherford MD / Chacorta Rutherford MD Interpreting Provider: Chacorta Rutherford MD Active Medications Acetaminophen (Tylenol) 650 mg PO Q6HR PRN PRN Reason: Mild Pain (1-3) Stop: 01/06/17 20:14 Al Hydrox/Mg Hydrox/Simethicone (Maalox) 15 ml PO Q6HR PRN PRN Reason: Dyspepsia Stop: 01/06/17 20:14 Albuterol Sulfate (Proventil Neb) 2.5 mg IH Q2H PRN PRN Reason: Shortness Of Breath/Wheezing Stop: 01/06/17 22:33 Albuterol/Ipratropium (Duoneb) 3 ml IH QIDR MT Stop: 01/06/17 23:01 Last Admin: 07/08/16 04:31 Dose: 3 ml Amitriptyline HCl (Elavil) 25 mg PO BID COUNTS INCLUDE 234 BEDS AT THE [facility] Stop: 01/06/17 21:01 Last Admin: 07/08/16 08:50 Dose: 25 mg Aspirin (Aspirin) 81 mg PO DAILY COUNTS INCLUDE 234 BEDS AT THE [facility] Stop: 01/07/17 09:01 Last Admin: 07/08/16 08:50 Dose: 81 mg Benzonatate (Tessalon) 200 mg PO TID PRN PRN Reason: Cough Stop: 01/06/17 21:08 Clopidogrel Bisulfate (Plavix) 75 mg PO DAILY MT Stop: 01/07/17 09:01 Last Admin: 07/08/16 08:51 Dose: 75 mg Dextrose/Water (Dextrose 50% (Syg)) 25 ml IVP AD PRN PRN Reason: Hypoglycemia Stop: 01/06/17 20:14 Docusate Sodium (Colace) 100 mg PO BID MT Stop: 01/06/17 21:01 Last Admin: 07/08/16 08:50 Dose: 100 mg Glucagon (Glucagen) 1 mg IM ONCE PRN PRN Reason: Hypoglycemia Stop: 01/06/17 20:14 Glucose (Gluctose) 15 gm PO ONCE PRN PRN Reason: Hypoglycemia Stop: 01/06/17 20:14 Glucose (Gluctose) 30 gm PO ONCE PRN PRN Reason: Hypoglycemia Stop: 01/06/17 20:14 Guaifenesin (Mucinex) 600 mg PO BID PRN PRN Reason: Congestion Stop: 01/06/17 21:08 Heparin Sodium (Porcine) (Heparin) 4,000 unit IVP Q6HR PRN PRN Reason: SEE COMMENTS Stop: 01/06/17 18:54 Heparin Sodium (Porcine) (Heparin) 2,000 unit IVP Q6H PRN PRN Reason: SEE COMMENTS Stop: 01/06/17 18:54 Heparin Sodium/Dextrose (Heparin 25,000 Unit/500 Ml D5w) 25,000 unit in 500 mls @ 18.724 mls/hr IVC .Q24H MT; 12 UNIT/KG/HR PRN Reason: Protocol Stop: 01/06/17 19:01 Last Titration: 07/08/16 04:00 Dose: 9 unit/kg/hr, 14.043 mls/hr Sodium Chloride (0.9 % Sodium Chloride) 1,000 mls @ 50 mls/hr IVC .Q20H MT Stop: 01/06/17 20:16 Last Admin: 07/07/16 22:37 Dose: 50 mls/hr Dextrose (Dextrose 5%) 1,000 mls @ 100 mls/hr IVC .Q10H PRN PRN Reason: HYPOGLYCEMIA Stop: 01/06/17 20:14 Diltiazem HCl 125 mg/ Dextrose 125 mls @ 5 mls/hr IVC .Q24H MT PRN Reason: 5 MG/HR Stop: 01/06/17 22:46 Last Infusion: 07/08/16 07:25 Dose: 0 mg/hr, 0 mls/hr Insulin Human Lispro (Humalog) 0 units SQ TIDAC MT PRN Reason: Protocol Stop: 01/07/17 07:31 Last Admin: 07/08/16 08:40 Dose: Not Given Insulin Human Lispro (Humalog) 0 units SQ HS COUNTS INCLUDE 234 BEDS AT THE [facility] PRN Reason: Protocol Stop: 01/06/17 21:01 Last Admin: 07/07/16 22:36 Dose: Not Given Isosorbide Mononitrate (Imdur) 30 mg PO DAILY COUNTS INCLUDE 234 BEDS AT THE [facility] Stop: 01/07/17 09:01 Last Admin: 07/08/16 08:50 Dose: 30 mg Lactic Acid (Amlactin) 1 appl TP BID COUNTS INCLUDE 234 BEDS AT THE [facility] Stop: 01/06/17 21:01 Last Admin: 07/08/16 08:15 Dose: Not Given Lorazepam (Ativan) 1 mg PO BID COUNTS INCLUDE 234 BEDS AT THE [facility] Stop: 01/06/17 21:01 Last Admin: 07/08/16 08:51 Dose: 1 mg Melatonin (Melatonin) 3 mg PO HS COUNTS INCLUDE 234 BEDS AT THE [facility] Stop: 01/06/17 22:46 Last Admin: 07/08/16 00:05 Dose: 3 mg Metoprolol Succinate (Toprol Xl) 25 mg PO DAILY COUNTS INCLUDE 234 BEDS AT THE [facility] Stop: 01/07/17 09:01 Last Admin: 07/08/16 08:50 Dose: 25 mg Metoprolol Tartrate (Lopressor) 5 mg IVP Q6HR PRN PRN Reason: SEE COMMENTS Stop: 01/06/17 20:14 Morphine Sulfate (Morphine Sulfate) 2 mg IVP Q2H PRN PRN Reason: Severe Pain (7-10) Stop: 01/06/17 20:14 Last Admin: 07/08/16 08:51 Dose: 2 mg Naloxone HCl (Narcan) 0.4 mg IVP Q2MIN PRN PRN Reason: Opioid Reversal Stop: 01/06/17 20:14 Nicotine (Nicoderm) 21 mg TD DAILY PRN; Protocol PRN Reason: Nicotine Cravings Stop: 01/06/17 20:16 Last Admin: 07/07/16 22:34 Dose: 21 mg Nitroglycerin (Nitroglycerin) 0.4 mg SL Q5MIN PRN PRN Reason: Chest Pain Stop: 01/06/17 20:14 Omeprazole (Prilosec) 20 mg PO DAILY COUNTS INCLUDE 234 BEDS AT THE [facility] Stop: 01/07/17 09:01 Last Admin: 07/08/16 08:50 Dose: 20 mg Oxycodone HCl (Roxicodone) 5 mg PO Q6HR PRN PRN Reason: Moderate Pain (4-6) Stop: 01/06/17 20:14 Pharmacy Profile Note (Patient Taking Own Medication) 0 each PO DAILY MT Stop: 01/07/17 09:01 Last Admin: 07/08/16 08:15 Dose: Not Given Promethazine HCl (Phenergan) 12.5 mg IVP Q6HR PRN PRN Reason: Nausea And Vomiting Stop: 01/06/17 20:14 Ranolazine (Ranexa) 1,000 mg PO BID COUNTS INCLUDE 234 BEDS AT THE [facility] Stop: 01/06/17 21:01 Last Admin: 07/08/16 08:50 Dose: 1,000 mg Rosuvastatin Calcium (Crestor) 20 mg PO HS COUNTS INCLUDE 234 BEDS AT THE [facility] Stop: 01/06/17 21:01 Last Admin: 07/07/16 22:30 Dose: 20 mg Topiramate (Topamax) 200 mg PO BID MT Stop: 01/06/17 21:01 Last Admin: 07/08/16 08:50 Dose: 200 mg - Imaging and Cardiology Chest Xray: report reviewed Echo: report reviewed Cardiac cath: report reviewed - EKG Interpretation EKG results cardiology: personally reviewed (SR, diffuse ST changes throughout) , other (24 hour tele AVG HR, up to 3 second pause during nocturnal hours) Consult Discharge Plan - Plan Referrals: Cisco Soria DO [Primary Care Provider] - 07/14/16 12:00 pm
[2016-07-08] MEDS: 0.9 % Sodium Chloride 1,000 ML IVC SCH (11:53)
[2016-07-08] MEDS ORDERED: Nitroglycerin 1,000 MCG/10 ML VIAL IV ONE (12:05)
[2016-07-08] MEDS ORDERED: *HR* Heparin 10,000 UNIT/10 ML VIAL ONE (12:05)
[2016-07-08] MEDS ORDERED: Heparin 1,000 UNITS/500 mL NS 500 ML ONE (12:05)
[2016-07-08] MEDS ORDERED: 0.9 % Sodium Chloride 1,000 ML ONE ×2 (12:05→12:06)
[2016-07-08] MEDS ORDERED: *HR* FentaNYL (PF) 100 MCG/2 ML VIAL ONE (12:49)
[2016-07-08] MEDS ORDERED: *HR* Midazolam HCl 2 MG/2 ML VIAL ONE ×2 (12:49→13:42)
--- NOTE | 2016-07-08 12:52 | Pre-Sedation Evaluation ---
Pre-sedation evaluation - Pre-sedation checklist Date of procedure: 07/08/16 Procedure: Heart Cath Recent Vitals: Last Vital Signs Temp 97.5 F L 07/08/16 11:54 Pulse 83 07/08/16 11:54 Resp 15 07/08/16 11:54 BP 114/76 07/08/16 11:54 Pulse Ox 99 07/08/16 11:54 H&P (including ROS) documented in medical record: Yes Previous reaction to sedatives/anesthetics: No Dietary Status: NPO after Midnight Airway Assessment: Patient can open mouth completely, TMJ function normal, Micrognathia (under-bite, receding chin) absent, Neck with adequate range of motion Dentition: dentures removed Possible difficult airway: No ASA Classification *see protocol: CLASS II-Mild systemic disease Plan of Care: Pt appropriate candidate for procedure/moderate/conscious sedation , Risks/benefits of procedure/sedation discussed w/ patient/family
[2016-07-08] MEDS ORDERED: *HR* Bivalirudin 250 MG VIAL IVC ONE (13:43)
--- NOTE | 2016-07-08 14:44 | Invasive Diagnostic Lab Proc ---
Name: Tamia Leonardo Date of Study: 07/08/2016 Date: 1960 Ht: 64.2in Medical Record#: [id number] Age: 56 Wt: 174.83lb Gender: Female BSA: 1.85 Order #: [id number] BMI: 29.85 Physicians Procedure Physician: Destiny Laurent MD, [facility] Referring MD: Referring MD: Staff Name Position Time In Amina Jensen RN Monitor 01:10 PM Christen Fernández RN Systems Support Engineer 01:10 PM Char Ken RT Scrub 01:10 PM Indications Indication Non-Stemi Procedures Performed Procedure L HRT ART/GRFT ANGIO PRQ REVASC BYP GRAFT 1 VSL Pre-Procedure Checklist Informed consent is complete signed and on chart. H\\T\\P is on chart. ID band is on and ID verified with patient. Patient NPO for procedure The procedure was described for the patient and questions were answered. Blood Pressure: 127/81 ECG is on chart. Plan of Care Patient will tolerate the procedure without complications. Adequate level of comfort will be maintained. Hemodynamics will remain stable Patient will recover from procedure without complications. Respiratory function will be maintained. Cardiac rhythm will remain stable. Patient temperature will be maintained. Patient and/or family have verbalized understanding of the procedure. Patient Education Chief Complaint/Reason for Test: Cardiac Cath Developmental Category: Adult (18-64 years) Learning Barriers: None Education Needs: Procedure Education Method: Verbal Information Taught: Cardiac Cath Educational Evaluation: Able to repeat information Intravenous Access Time IV Size Location DC'd Fluid/Drip Rate Units RN 18g 1 /" Patent On Arrival Lt Antecubital 0.9NaCl 25 ml/hr Allergies NOVACAINE bactrim sulfamethoxazole trimethoprim metformin nitroglycerin Vital Signs Time BP (mmHg) HR (bpm) O2 Sat. RR (bpm) LOC 127 / 81 83 99 % 16 5 = Fully awake and oriented or at pre-proc level 01:14 PM / % 5 = Fully awake and oriented or at pre-proc level 01:14 PM / % 5 = Fully awake and oriented or at pre-proc level 01:26 PM / % 5 = Fully awake and oriented or at pre-proc level 01:41 PM / % 5 = Fully awake and oriented or at pre-proc level 01:47 PM / % 5 = Fully awake and oriented or at pre-proc level 01:49 PM / % 5 = Fully awake and oriented or at pre-proc level 01:59 PM / % 5 = Fully awake and oriented or at pre-proc level 02:10 PM / % 5 = Fully awake and oriented or at pre-proc level 01:14 PM 134 / 78 88 100 % 20 01:19 PM 127 / 71 77 99 % 20 01:23 PM 131 / 82 83 100 % 15 01:28 PM 124 / 64 83 100 % 18 01:33 PM 123 / 73 92 99 % 12 01:38 PM 118 / 75 94 100 % 13 01:43 PM 123 / 79 81 99 % 19 01:48 PM 118 / 79 84 98 % 14 01:53 PM 121 / 72 73 98 % 18 01:59 PM 125 / 69 93 100 % 11 02:03 PM 114 / 62 93 94 % 18 02:09 PM 120 / 71 81 96 % 18 02:14 PM 131 / 76 83 98 % 18 02:19 PM 133 / 79 84 99 % 17 02:16 PM / % 5 = Fully awake and oriented or at pre-proc level Procedural Medications Time Medication Dose Units Method Given By 01:14 PM Oxygen 2 L/min nasal cannula Christen Fernández RN 01:16 PM Versed 2 mg Intravenous Christen Fernández RN 01:16 PM Fentanyl 50 mcg Intravenous Christen Fernández RN 01:24 PM Lidocaine 2% 20 ml Subcutaneous Destiny Laurent MD, FACC 01:25 PM Benadryl 25 mg Intravenous Christen Fernández RN 01:40 PM Fentanyl 25 mcg Intravenous Christen Fernández RN 01:42 PM Versed 1 mg Intravenous Christen Fernández RN 01:43 PM Angiomax 0.75mg/kg bolus: 12 ml Intravenous Christen Fernández RN 01:43 PM Angiomax 1.75mg/kg/hr: 28 ml Intravenous Christen Fernández RN 02:02 PM Nitroglycerin 200 mcg Intracoronary Destiny Laurent MD, FACC 02:24 PM Plavix 600 mg Orally Christen Fernández RN ASA Classification: CLASS II- Mild systemic disease (i.e. well-controlled diabetes, hypertension, asthma, cigarette smoking) Nohemi Score Preprocedure Postprocedure Activity 2- Moves 4 extremities sustained head lift Activity 2- Moves 4 extremities sustained head lift Circulation 2- SBP +/= 20 points of pre-anesthetic level Circulation 2- SBP +/= 20 points of pre-anesthetic level Consciousness 2- Awake and alert oriented x 3 Consciousness 2- Awake and alert oriented x 3 O2 Saturation 2- Able to maintain O2 satruation of 92% on room air O2 Saturation 2- Able to maintain O2 satruation of 92% on room air Respiratory 2- Able to deep breathe and cough well Respiratory 2- Able to deep breathe and cough well Total Score 10 Total Score 10 Contrast Agent: Isovue Diagnostic Contrast: 173 ml Total Contrast: 173 ml Fluoro Dose: 1684 mGy Activated Clotting Time Time Seconds to Clot 01:42 PM 141 Procedure Log Time Note Enter By 01:10 PM Pt arrived to labor gang supervisor 2 at 13:10 ejohnson 01:10 PM Amina Jensen RN Position: Monitor Time in: 13:10 ejohnson 01:10 PM Christen Fernández RN Position: Systems Support Engineer Time in: 13:10 ejohnson 01:10 PM Char Ken Position: Scrub Time in: 13:10 ejohns:11 PM Case Delayed No ejohnson :11 PM Hair removed from procedure site in procedure lab using clippers. Bilateral groin prepped with Chloraprep by Char Ken, safety strap applied then patient was draped. Skin intact. ejohnson 01:11 PM Physician arrived 13:11 ejohnson :11 PM ASA Class CLASS II- Mild systemic disease (i.e. well-controlled diabetes, hypertension, asthma, cigarette smoking) ejohnson : PM Meet and greet completed ns: PM Sign in performed according to hospital policy. ejohnson :11 PM Procedure start 13:11 ejohnson :13 PM CathStat 01:13 PM Vitals capture started with the following parameters, Patient=Adult, Interval=5 min, Initial Ldncpybl=290 mmHg, Deflation Rate=5 mmHg, Cuff placed on Left Arm 01:14 PM Time: 13:14 Oxygen on at 2 L/min per nasal cannula by Christen Fernández RN ejohnson :14 PM HR=88 bpm, ETOI=156/78 mmhg, KdD3=972.0 %, Resp=20 B/min, Comment=SR 01:14 PM Time: 13:14 Patient comfortable and pain free: Yes ejohnson 01:14 PM Time: 13:14LOC: 5 = Fully awake and oriented or at pre-proc level ejohnson 01:16 PM Time: 13:16 Versed 2 mg Intravenous Given by Christen Fernández RN ejohnson 01:16 PM Time: 13:16 Fentanyl 50 mcg Intravenous Given by Chritsen Fernández RN ejohnson 01:19 PM HR=77 bpm, VEOH=107/71 mmhg, SpO2=99 %, Resp=20 B/min 01:19 PM Recorded ECG: HR=82 Condition=Condition 1 01:23 PM HR=83 bpm, QJXQ=630/82 mmhg, GqC9=921.0 %, Resp=15 B/min, Comment=SR 01:24 PM Time out performed according to hospital policy ejohnson 01:25 PM Time: 13:24 20 ml Lidocaine 2% to right groin Subcutaneous Given by Destiny Laurent MD, [facility] ejohnson :25 PM Time: 13:25 Benadryl 25 mg Intravenous Given by Christen Fernández RN ejohnson 01:26 PM Time: 13:14 Patient comfortable and pain free: Yes ejohnson :26 PM Time: 13:14LOC: 5 = Fully awake and oriented or at pre-proc level ejohnson 01:27 PM Access obtained by percutaneous puncture. 5Fr 10cm Terumo [place] sheath placed in right Femoral artery. [id number] ejohnson 01:28 PM 5Fr FL 4 catheter inserted over the wire [facility] ejohnson :28 PM wire removed ejohnson 01:28 PM HR=83 bpm, AAJC=467/64 mmhg, ReB5=859.0 %, Resp=18 B/min, Comment=SR 01:29 PM Recorded Pressure: Ao, HR=80, Condition=Condition 1 (Aorta) Ao 112/80/95 01:29 PM LCA angiography performed in multiple views. ejohnson 01:30 PM Lesion found in Proximal LAD. Pre Stenosis: 100 Pre CRISTINA Flow: 0: No Flow/No perfusion ejohnson 01:30 PM Proximal Left Anterior Descending Coronary Artery with 100% stenosis. ejohnson 01:30 PM Catheter removed ejohnson 01:30 PM 5Fr FR 4 catheter inserted over the wire DNC ejohnson 01:31 PM wire removed ejohnson 01:31 PM Recorded Pressure: Ao, HR=93, Condition=Condition 1 (Aorta) Ao 106/82/94 01:32 PM RCA angiography performed in [place]. ejohnson 01:32 PM Recorded Pressure: Ao, HR=90, Condition=Condition 1 (Aorta) Ao 104/77/90 01:33 PM SVG to the RPDA angio performed in multiple views. ejohnson 01:33 PM Catheter removed ejohnson 01:33 PM Lesion found in Proximal RCA. Pre Stenosis: 100% ejohnson 01:33 PM HR=92 bpm, BEAM=103/73 mmhg, SpO2=99.0 %, Resp=12 B/min, Comment=SR 01:34 PM Right Coronary, Right Posterior Descending Arteries with Right Posterolateral and Acute Marginal branches with 100 % stenosis. ejohnson 01:34 PM 5Fr IM catheter inserted over the wire [id number] ejohnson 01:34 PM wire removed ejohnson 01:35 PM Recorded Pressure: Ao, HR=91, Condition=Condition 1 (Aorta) Ao 106/80/93 01:37 PM Left DELORIS to the LAD angio performed in multiple views. ejohnson 01:38 PM Catheter removed ejohnson 01:38 PM HR=94 bpm, KKMC=784/75 mmhg, UhZ8=906.0 %, Resp=13 B/min, Comment=SR 01:39 PM Sheath exchanged for a 6 Fr 11 cm Cordis Kaycee sheath [id number] ejohnson 01:40 PM Inflation device was opened. ejohnson 01:40 PM Time: 13:40 Fentanyl 25 mcg Intravenous Given by Christen Fernández RN ejohnsdonald 01:41 PM Time: 13:26 Patient comfortable and pain free: Yes ejohnson 01:41 PM Time: 13:26LOC: 5 = Fully awake and oriented or at pre-proc level ejohnson 01:42 PM At 13:42 the ACT was 141 seconds. ejohnson 01:42 PM Time: 13:42 Versed 1 mg Intravenous Given by Christen Gifford RN ejohnsdonald :43 PM Time: 13:43 Angiomax 0.75mg/kg bolus: 12 ml Intravenous Given by Christen Fernández RN Green pump ejohnson 01:43 PM Time: 13:43 Angiomax 1.75mg/kg/hr: 28 ml Intravenous Given by Christen Fernández RN Green pump ejohnson 01:43 PM HR=81 bpm, PZVL=473/79 mmhg, SpO2=99.0 %, Resp=19 B/min, Comment=SR 01:44 PM 6Fr JR4 Runway guide catheter was used to cannulate the PCI vessel successfully. reused? No. inserted over the wire then wire removed ejohnson 01:47 PM Time: 13:41 Patient comfortable and pain free: Yes ejohnson 01:47 PM Time: 13:41LOC: 5 = Fully awake and oriented or at pre-proc level ejohnson 01:47 PM .014 Prowater 180cm guide wire across target lesion- successful. reused? No ejohnson 01:48 PM HR=84 bpm, PDNG=339/79 mmhg, SpO2=98.0 %, Resp=14 B/min, Comment=SR 01:49 PM Time: 13:47 Patient comfortable and pain free: Yes ejohnson 01:49 PM Time: 13:47LOC: 5 = Fully awake and oriented or at pre-proc level ejohnson 01:49 PM Recorded Pressure: Ao, HR=89, Condition=Condition 1 (Aorta) Ao 121/79/98 01:50 PM Guide wire removed intact. ejohnson 01:50 PM Guide catheter removed intact. ejohnson 01:50 PM 6Fr MPA Runway guide catheter was used to cannulate the PCI vessel successfully. reused? No. inserted over the wire then wire removed ejohnson 01:52 PM Recorded Pressure: Ao, HR=83, Condition=Condition 1 (Aorta) Ao 112/69/88 01:52 PM Prowater reinserted ejohnson 01:53 PM HR=73 bpm, ZQPE=800/72 mmhg, SpO2=98.0 %, Resp=18 B/min, Comment=SR 01:56 PM 2.5 mm x 12 mm Emerge Monorail balloon across target lesion- successful. reused? No ejohnson 01:56 PM Balloon inflated @ 10 paolo for 20 seconds ejohnson 01:58 PM Recorded Pressure: Ao, HR=93, Condition=Condition 1 (Aorta) Ao 111/80/95 01:59 PM HR=93 bpm, QYNJ=622/69 mmhg, CtW3=297.0 %, Resp=11 B/min, Comment=SR 01:59 PM Balloon catheter removed intact. ejohnson 01:59 PM Time: 13:49 Patient comfortable and pain free: Yes ejohnson 01:59 PM Time: 13:49LOC: 5 = Fully awake and oriented or at pre-proc level ejohnson 01:59 PM 2.75mm x 16mm Synergy drug-eluting stent across target lesion- successful Lot #[id number] ejohnson 02:01 PM Stent deployed @ 14 paolo for 30 seconds ejohnson 02:02 PM Stent balloon reinflated @ 18 paolo for 12 seconds ejohnson 02:02 PM Stent delivery system removed intact. ejohnson 02:03 PM Time: 14:02 Nitroglycerin 200 mcg Intracoronary Given by Destiny Laurent MD, [facility] ejohnson 02:03 PM NIBP STAT measurement started. 02:03 PM HR=93 bpm, CXIL=631/62 mmhg, SpO2=94.0 %, Resp=18 B/min, Comment=SR 02:09 PM HR=81 bpm, ZKJO=234/71 mmhg, SpO2=96.0 %, Resp=18 B/min, Comment=SR 02:09 PM 2.75mm x 16mm Synergy drug-eluting stent across target lesion- successful Lot #[id number] ejohnson 02:10 PM Time: 13:59 Patient comfortable and pain free: Yes ejohnson 02:10 PM Time: 13:59LOC: 5 = Fully awake and oriented or at pre-proc level ejohnson 02:12 PM Stent deployed @ 18 paolo for 30 seconds ejohnson 02:12 PM Stent balloon reinflated @ 18 paolo for 12 seconds ejohnson 02:13 PM Stent balloon reinflated @ 20 paolo for 14 seconds ejohnson 02:13 PM Stent delivery system removed intact. ejohnson 02:14 PM HR=83 bpm, NITJ=613/76 mmhg, SpO2=98.0 %, Resp=18 B/min, Comment=SR 02:15 PM Stent delivery system removed intact. ejohnson 02:15 PM Guide wire removed intact. ejohnson 02:15 PM Guide catheter removed intact. ejohnson 02:15 PM 5Fr Pigtail catheter inserted over the wire [facility] ejohnson 02:15 PM Catheter selectively placed in left ventricle ejohnson 02:15 PM Bolus angiogram of left Ventricle complete: 8 ml/sec for a total of 24 mls ejohnson 02:16 PM Time: 14:10 Patient comfortable and pain free: Yes ejohnson 02:16 PM Time: 14:10LOC: 5 = Fully awake and oriented or at pre-proc level ejohnson 02:16 PM Recorded Pressure: LV, HR=85, Condition=Condition 1 (Left Ventricle) LV 111/27/35 02:16 PM Recorded Pressure: LV, Ao, HR=88, Condition=Condition 1 (Left Ventricle) LV 114/42/55, (Aorta) Ao 117/87/103 02:17 PM Wire removed ejohnson 02:17 PM Catheter removed ejohnson 02:17 PM Bolus angiogram of right Femoral complete: 2 ml/sec for a total of 4 mls ejohnson 02:19 PM HR=84 bpm, XOKC=073/79 mmhg, SpO2=99.0 %, Resp=17 B/min, Comment=SR 02:20 PM Procedure completed at 14:20 ejohnson 02:20 PM Sign out completed: Radiation Dose 1684.3 mGy Fluoro Time: 15.1 Isovue 370 - 200ml contrast 173 ml given by Destiny Laurent MD, [facility]. Complications: NoneCardiac Rehab Consult needed: YesConfirmed administered medications: Yes ejohnson 02:20 PM Isovue 370 - 200ml,1 Bottle(s) used. ejohnson 02:20 PM Sheath left in place to be pulled on floor/holding area ejohnson 02:24 PM Time: 14:24 Plavix 600 mg Orally Given by Christen Fernández RN ejohnson 02:26 PM Post ECG NSR ejohnson 02:26 PM Post Blood Pressure 133/79 ejohnson 02:26 PM 14:26 Post Pulses Bilateral DP \\T\\ PT 1+ ejohnson 02:26 PM Information taught PCI and Cardiac Cath ejohnson 02:26 PM Education needs Plan of Care and Responsibilities of Patient in Care ejohnson 02:26 PM Learning barriers :None ejohnson 02:26 PM Education Methods Verbal ejohnson 02:26 PM Education evaluation Able to repeat information ejohnson 02:26 PM Site status No bleeding/hematoma - Rt Groin as reported by Char Ken RT at 14:26 ejohnson 02:26 PM Opsite applied ejohnson 02:27 PM Plavix, Effient or Brilinta given Yes ejohnson 02:27 PM Delay to floor No ejohnson 02:27 PM Family placed in consult room. ejohnson 02:27 PM Complications: None ejohnson 02:28 PM Lesion found in LMCA. Pre Stenosis: 20 Pre CRISTINA Flow: 3: Complete and Brisk Flow/Perfusion ejohnson 02:28 PM Lesion found in Proximal Circumflex. Pre Stenosis: 15 Pre CRISTINA Flow: 3: Complete and Brisk Flow/Perfusion ejohnson 02:28 PM Lesion found in 1st Marginal. Pre Stenosis: 15 Pre CRISTINA Flow: 3: Complete and Brisk Flow/Perfusion ejohnson 02:28 PM Lesion found in Ramus. Pre Stenosis: 40 Pre CRISTINA Flow: 3: Complete and Brisk Flow/Perfusion ejohnson 02:28 PM Circumflex, Obtuse Marginal, Left Posterior Descending, and Left Posterolateral Coronary Arteries with 15 % stenosis. ejohnson 02:29 PM Left Main Coronary Artery with 20% stenosis ejohnson 02:29 PM Ramus with 40% stenosis. ejohnson 02:30 PM Coronary Dominance: right ejohnson 02:31 PM Time: 14:16LOC: 5 = Fully awake and oriented or at pre-proc level ejohnson 02:31 PM Time: 14:16 Patient comfortable and pain free: Yes ejohnson 02:34 PM Report given to Peri LEE Pt taken to 2N Room #15. 14:33 ejohnson 02:34 PM Patient out of room: 14:34 ejohnson Complications Complication None Hemodynamics Pressures Site Systolic/A Wave Diastolic/V Wave Mean AO 112 80 95 AO 106 82 94 AO 104 77 90 AO 106 80 93 AO 121 79 98 AO 112 69 88 AO 111 80 95 LV 111 27 35 LV 114 42 55 AO 117 87 103 Post Procedure Information Blood Pressure: 133/79 mmHg Rhythm: NSR Post procedural instructions were given Site Checks Time Location Status Staff Sheath In? Note 02:26 PM Rt Groin No bleeding/hematoma Char Ken RT Pulses Time Site Pre-Procedure Post-Procedure Note Bilateral DP \\T\\ PT 1+ 2:26:00 PM Bilateral DP \\T\\ PT 1+ Updated by Amina Jensen RN on 07/08/2016 2:38:36 PM Amina Jensen RN electronically signed on 07/08/2016 2:39:09 PM with status of Final
--- NOTE | 2016-07-08 15:18 | Invasive Diagnostic Lab ---
Name: Tamia Leonardo Date of Study: 07/08/2016 Date: 1960 Ht: 163.0 cm /64.2 in Medical Record#: [id number] Age: 56 Wt: 79.3 kg / 174.83 lb Account/Order#: [id number] Gender: Female BSA: 1.85 Order #: [id number] Fluoro Dose: 1684 mGy BMI: 29.85 Procedure Physician: Destiny Laurent MD, [facility] Referring MD: Referring MD: Procedures Performed: LEFT HEART CATH W/ GRAFTS PCI of Bypass Graft Indications: Non-Stemi Impressions: There is severe three vessel coronary artery disease. S/P CABG 2 of 2 patent bypass grafts. Mild LV systolic dysfunction. EF 45% Successful PCI of SVG to R PDA. Recommendations: Dual antiplatelet therapy. Optimal medical therapy of patient's disease. Aggressive risk factor modification. History/Risk Factors: Diabetes Hypertension Dyslipidemia CHF Cerebrovascular disease Prior [place] Previous PCI Procedure Access obtained in the right Femoral artery by percutaneous puncture Complications: None Contrast: Isovue 173ml Hemodynamics: Pressures Site Systolic/ A Wave Diastolic/ V Wave End Diastolic/ Mean HR AO 112 80 95 80 AO 106 82 94 93 AO 104 77 90 90 AO 106 80 93 91 AO 121 79 98 89 AO 112 69 88 83 AO 111 80 95 93 LV 111 27 35 85 LV 114 42 55 87 AO 117 87 103 89 LV Ventriculography Ejection Method: LV Gram Ejection Fraction: 45% Wall Motion: CENTENO Anterobasal Normal Anterolateral Moderate Hypokinesis Apical: Moderate Hypokinesis Inferoapical Moderate Hypokinesis Inferobasal Normal Coronary Dominance: right Lesion Findings/Interventions * Left Main Coronary Artery There is a 20% in-stent stenosis in the LMCA. The lesion has a CRISTINA flow of 3. * Left Anterior Descending There is a 100% stenosis in the Proximal LAD- TRANSPLANT SURGEON. The lesion has a CRISTINA flow of 0. * Circumflex There is a 15% in-stent stenosis in the Proximal Circumflex. The lesion has a CRISTINA flow of 3. There is a 15% in-stent stenosis in the 1st Marginal. The lesion has a CRISTINA flow of 3. * Ramus There is a 40% stenosis in the Ramus. The lesion has a CRISTINA flow of 3. * Right Coronary Artery There is a 100% stenosis in the Proximal RCA- TRANSPLANT SURGEON. R PDA/distal RCA fills via SVG to R PDA and via L to R collaterals. Additional Findings: Grafts * The left internal mammary graft to the Mid LAD is patent. CRISTINA flow is 3. * The saphenous vein graft to the Right PDA has a 99% stenosis in the body of the graft and 70% in the proximal portion. CRISTINA flow is 1 pre PCI and CRISTINA flow of 3 post PCI. An intervention was performed on the SVG to the RPDA body and Proximal portion with a final stenosis of 0%. There were no lesion complications. The final CRISTINA flow was 3. Interventional Device(s) Vessel Segment Type Name Diameter (mm) Length (mm) SVG to the RPDA body Balloon Emerge Monorail 2.5 12 SVG to the RPDA body Drug Eluting Stent Synergy 2.75 16 SVG to the RPDA, proximal Drug Eluting Stent Synergy 2.75 16 Updated by Amina Jensen RN on 07/08/2016 2:54:05 PM Destiny Laurent MD, [facility] electronically signed on 07/08/2016 3:13:24 PM with status of Final
--- NOTE | 2016-07-08 16:20 | Internal Med Progress Note ---
Date of Encounter: 07/08/16 Time of Encounter: 08:30 - Assessment and plan (1) NSTEMI (non-ST elevated myocardial infarction) Current Visit: Yes Status: Acute Assessment and plan: Plan for cardiac cath today per cardiology. (2) HTN (hypertension) Current Visit: Yes Status: Chronic Assessment and plan: Monitoring BP and continuing medical management. Qualifiers: Hypertension type: essential hypertension Qualified Code(s): I10 - Essential (primary) hypertension (3) COPD mixed type Current Visit: Yes Status: Chronic Assessment and plan: Supportive care. (4) CAD (coronary artery disease) Current Visit: Yes Status: Chronic Assessment and plan: Plan for cardiac cath today. Qualifiers: Coronary Disease-Associated Artery/Lesion type: bypass graft Ramona vs. transplanted heart: douglas heart Associated angina: with unstable angina Qualified Code(s): I25.700 - Atherosclerosis of coronary artery bypass graft(s) , unspecified, with unstable angina pectoris (5) HLD (hyperlipidemia) Current Visit: Yes Status: Chronic Assessment and plan: Continue medications. Qualifiers: Hyperlipidemia type: mixed hyperlipidemia Qualified Code(s): E78.2 - Mixed hyperlipidemia (6) Type 2 diabetes mellitus Current Visit: Yes Status: Chronic Assessment and plan: Accuchecks and coverage. Qualifiers: Diabetes mellitus complication status: with circulatory complication Diabetes mellitus complication detail: with other circulatory complications Diabetes mellitus adjunct faculty for medical terminology insulin use: without adjunct faculty for medical terminology use Qualified Code( s): E11.59 - Type 2 diabetes mellitus with other circulatory complications (7) Tobacco abuse Current Visit: Yes Status: Chronic Assessment and plan: Cessation counselling. - Subjective Interval history: Ms. Leonardo is currently admitted for acute NSTEMI with hx of CAD s/p CABG. She is moderate to high risk due to potential for worsening cardiac status. Ms. Leonardo is doing OK at this time. To have cath later today. - Constitutional Vitals: Temp Pulse Resp BP Pulse Ox 97.4 F L 87 18 142/85 98 07/08/16 15:10 07/08/16 15:10 07/08/16 15:10 07/08/16 15:10 07/08/16 15:10 General appearance: Present: cooperative, A&O X 3, obese, answers questions appropriately - Head Head exam: Present: normocephalic - Eye Eye exam: Present: conjuntiva pink - ENT ENT exam: Present: mucous membranes moist - Respiratory Respiratory exam: Present: decreased breath sounds. Absent: wheezes - Cardiovascular Cardiovascular exam: Present: RRR. Absent: tachycardia - GI/Abdominal GI/Abdominal exam: Present: soft. Absent: tenderness - Extremities Exam Extremities exam: Present: warm. Absent: pedal edema - Neurological Exam Neurological exam: Present: alert, oriented X3, no focal deficits - Psychiatric Psychiatric exam: Present: normal affect, normal mood - Skin Skin exam: Present: warm. Absent: rash Internal Medicine: Result - Labs CBC & Chem 7: 07/08/16 05:40 07/08/16 05:40 - ABG Interpretation ABG results: PT/INR, D-dimer PT 11.2 Seconds (9.4-12.1) 07/07/16 18:02 Consult Discharge Plan - Plan Referrals: Cisco Soria DO [Primary Care Provider] - 07/14/16 12:00 pm
--- NOTE | 2016-07-08 16:41 | Electrocardiograph Report ---
[place] [address] Test Date: 2016-07-07 Pat Name: Tamia Leonardo Department: 102 Room: 2N15 Gender: F Hospice Care Transitions Coordinator: Jacinta : 1960 Requested By: Kateryna See Order Number: [id number] Reading MD: Destiny Laurent Measurements Intervals [place] Rate: 111 P: 61 HI: 144 QRS: 29 QRSD: 105 T: 45 QT: 337 QTc: 402 Interpretive Statements SINUS TACHYCARDIA SEPTAL MYOCARDIAL INFARCTION [40+ ms Q WAVE IN V1/V2], OF INDETERMINATE AGE Electronically Signed On 07-08-2016 16:39:56 EDT by Destiny Laurent
--- NOTE | 2016-07-08 16:45 | Electrocardiograph Report ---
[address] [place], [place] [address] Test Date: 2016-07-07 Pat Name: Tamia Leonardo Department: 111 Room: 2N15 Gender: F Outside Production Inspector: [facility] : 1960 Requested By: Maulik Barrow Order Number: [id number] Reading MD: Destiny Laurent Measurements Intervals [place] Rate: 91 P: 37 MI: 177 QRS: -10 QRSD: 102 T: 123 QT: 383 QTc: 431 Interpretive Statements SINUS RHYTHM SEPTAL MYOCARDIAL INFARCTION, OF INDETERMINATE AGE MODERATE T-WAVE ABNORMALITY, CONSIDER LATERAL ISCHEMIA Electronically Signed On 07-08-2016 16:44:23 EDT by Destiny Laurent
--- NOTE | 2016-07-08 16:49 | Electrocardiograph Report ---
[address] [place] [address] Test Date: 2016-07-08 Pat Name: Tamia Leonardo Department: 111 Room: 2N15 Gender: F Admissions Advisor: ERICK : 1960 Requested By: Shailesh Berrios Order Number: [id number] Reading MD: Destiny Laurent Measurements Intervals [place] Rate: 76 P: 48 [place]: 174 QRS: -6 QRSD: 102 T: 64 QT: 405 QTc: 435 Interpretive Statements SINUS RHYTHM SEPTAL MYOCARDIAL INFARCTION, OF INDETERMINATE AGE Electronically Signed On 07-08-2016 16:47:17 EDT by Destiny Laurent
[2016-07-08] MEDS ORDERED: *HR* Atropine Sulfate 1 MG/10 ML SYRINGE ONE (17:15)
[2016-07-08] MEDS ORDERED: Mag Hydrox/Al Hydrox/Simeth 30 ML UDC PO PRN (19:49)
[2016-07-09] MEDS: 0.9 % Sodium Chloride 1,000 ML IVC SCH (00:31)
[2016-07-09] MEDS: Nicotine 21 MG PATCH.TD24 TD PRN (00:31)
[2016-07-09] MEDS: Ipratropium/Albuterol Neb 3 ML IH SCH ×2 (03:06→10:29)
[2016-07-09] MEDS: Topiramate 100 MG TABLET PO SCH (09:07)
[2016-07-09] MEDS: Aspirin 81 MG TAB.CHEW PO SCH (09:07)
[2016-07-09] MEDS: Isosorbide MONOnitrate (24 HR) 30 MG TAB.ER.24H PO SCH (09:08)
[2016-07-09] MEDS: Metoprolol XL (24 HR) Succ 25 MG TAB.ER.24H PO SCH (09:08)
[2016-07-09] MEDS: *HR* LORazepam 1 MG TABLET PO SCH (09:08)
[2016-07-09] MEDS: Ranolazine 500 MG TAB.ER.12H PO SCH (09:08)
[2016-07-09] MEDS: Insulin LISPRO 300 UNITS/3 ML VIAL SQ SCH ×2 (09:08→11:43)
[2016-07-09] MEDS: Ammonium Lactate 30 APPL/225 GM BOTTLE TP SCH (09:10)
--- NOTE | 2016-07-09 09:15 | Cardiology Progress Note ---
Date of Encounter: 07/09/16 Time of Encounter: 09:13 Assessment and Plan (1) NSTEMI (non-ST elevated myocardial infarction) Current Visit: Yes Status: Acute Troponins 0.12, 0.28, 0.47, 0.62. Diffuse EKG flattening/depression. S/P LHC yesterday--severe 3 vessel CAD, S/P CABG 2/2 patent bypass grafts. Mild LV systolic dysfunction EF 45%. Successful PCI of SVG to right PDA with 2 CARLO. Current CBC, BMP pending. Recommend DAPT (ASA and Plavix) x 1 year uninterrupted. Pt verbalizes understanding. Continue BB, Statin, nitrates. Pt does report bright red blood per rectum since March that her PCP attributes to internal and external hemorrhoids. H&H and platelet count are stable. Was already on Plavix at home. Echo pending. Right femoral access site healing well. No bleeding, hematoma or ecchymosis noted. Cardiology signing off. Reconsult PRN. Follow-up as outpt in 1 week. Will coordinate. (2) CAD (coronary artery disease) Current Visit: Yes Status: Chronic As above. ASA, Plavix, Statin, BB, nitrates. Hx of CABG and PCI. Qualifiers: Coronary Disease-Associated Artery/Lesion type: bypass graft [place] vs. transplanted heart: [place] heart Associated angina: with unstable angina Qualified Code(s): I25.700 - Atherosclerosis of coronary artery bypass graft(s) , unspecified, with unstable angina pectoris (3) Tobacco abuse Current Visit: Yes Status: Chronic Continues to smoke 1/2 PPD. Smoking cessation counseling given. Discussion w patient/family: The assessment and plan as outlined above was discussed with the patient and/or family members who expressed understanding and agreement. All questions were answered. Thank you for involving us in the care of your patient. Please call with any questions. I will discuss all the above with Dr. Pruett and make changes as necessary. Subjective Principal diagnosis: NSTEMI Interval history: Pt reports epigastric pain when swallowing. Denies any other pain or chest pain , denies dyspnea. S/P LHC yesterday--revealed severe 3 vessel CAD, S/P CABG 2/2 patent bypass grafts. Mild LV systolic dysfunction EF 45%. Successful PCI of SVG to right PDA. Echo pending. Objective Vital Signs, Last 4 Hours Temp Pulse Resp BP Pulse Ox 07/09/16 07:08 97.6 F 76 18 109/73 98 Vital Signs Temp Pulse Pulse Resp BP Pulse Ox 07/09/16 07:08 97.6 F 76 18 109/73 98 07/09/16 04:44 97.9 F 85 18 112/73 98 07/09/16 00:35 97.7 F 91 16 110/75 96 07/08/16 22:33 19 100 07/08/16 22:00 82 108/72 93 07/08/16 21:00 79 113/72 96 07/08/16 20:30 97.7 F 83 18 126/85 97 07/08/16 20:00 80 118/77 97 07/08/16 19:30 56 95 07/08/16 19:00 82 131/78 98 07/08/16 18:45 83 83 16 118/76 96 07/08/16 18:30 82 82 16 111/69 97 07/08/16 18:15 87 87 16 105/72 99 07/08/16 18:05 61 61 16 96/69 98 07/08/16 18:03 67 07/08/16 18:00 80 71 98/74 07/08/16 17:56 55 55 101/68 07/08/16 17:50 81 79 96/68 07/08/16 17:45 81 82 87/56 07/08/16 17:43 67 62 18 95/57 07/08/16 17:30 89 89 16 121/80 97 07/08/16 17:00 75 75 96 137/86 07/08/16 16:48 20 98 07/08/16 16:30 72 72 18 131/91 96 07/08/16 16:00 66 66 18 143/88 94 07/08/16 15:30 83 83 18 125/68 95 07/08/16 15:15 88 88 20 147/89 95 07/08/16 15:10 97.4 F L 87 18 142/85 98 07/08/16 15:00 82 82 20 139/96 96 07/08/16 14:55 79 79 16 142/85 95 07/08/16 11:54 97.5 F L 83 15 114/76 99 Intake and Output 07/08/16 07/09/16 07/09/16 23:59 07:59 15:59 Intake Total 120 / 120 Output Total 1500 / 1500 Balance -1500 / -1500 120 / 120 Intake: Oral 120 / 120 Output: Urine 1500 / 1500 Other: Meal Dinner Breakfast Percent of Meal Consumed 10% 10% # Voids 1 # Bowel Movements 1 Weight 80.7 kg Blood Glucose* 167 129 Patient Weight 07/09/16 23:59 Weight 80.7 kg General: Conversant, No Apparent Distress HEENT: Atraumatic, Normocephaly, Mucus Membranes Moist Neck: No JVD, Normal carotid pulses Cardiac: Reg Rate and Rhythm, Normal S1 and S2, No Murmur Lungs: Normal Breath Sounds, No Wheeze, Rales, Rhonchi Neuro: Alert and responsive, No focal deficits noted Abdomen: Soft, Non-Tender Skin: Other (right femoral access site healing well. No bleeding, hematoma or ecchymosis noted.) Musculoskeletal: No Chest Wall Tenderness Extremities: No Clubbing, No Cyanosis, No Edema, Normal Pulses Results 07/08/16 05:40 07/08/16 05:40 Lab Results 07/08/16 18:28 APTT 47.4 H Cardiac Enzymes 07/08/16 Range/Units 11:44 Troponin I 0.62 H* (0-0.03) ng/mL Active Medications Acetaminophen (Tylenol) 650 mg PO Q6HR PRN PRN Reason: Mild Pain (1-3) Stop: 01/06/17 20:14 Al Hydrox/Mg Hydrox/Simethicone (Maalox) 15 ml PO Q6HR PRN; Protocol PRN Reason: Indigestion Stop: 01/07/17 19:50 Albuterol Sulfate (Proventil Neb) 2.5 mg IH Q2H PRN PRN Reason: Shortness Of Breath/Wheezing Stop: 01/06/17 22:33 Albuterol/Ipratropium (Duoneb) 3 ml IH QIDR [facility] Stop: 01/06/17 23:01 Last Admin: 07/09/16 03:06 Dose: Not Given Amitriptyline HCl (Elavil) 25 mg PO BID [facility] Stop: 01/06/17 21:01 Last Admin: 07/09/16 09:08 Dose: 25 mg Aspirin (Aspirin) 81 mg PO DAILY [facility] Stop: 01/07/17 09:01 Last Admin: 07/09/16 09:07 Dose: 81 mg Clopidogrel Bisulfate (Plavix) 75 mg PO DAILY [facility] Stop: 01/07/17 09:01 Last Admin: 07/09/16 09:08 Dose: 75 mg Dextrose/Water (Dextrose 50% (Syg)) 25 ml IVP AD PRN PRN Reason: Hypoglycemia Stop: 01/06/17 20:14 Docusate Sodium (Colace) 100 mg PO BID [facility] Stop: 01/06/17 21:01 Last Admin: 07/09/16 09:08 Dose: 100 mg Glucagon (Glucagen) 1 mg IM ONCE PRN PRN Reason: Hypoglycemia Stop: 01/06/17 20:14 Glucose (Gluctose) 15 gm PO ONCE PRN PRN Reason: Hypoglycemia Stop: 01/06/17 20:14 Glucose (Gluctose) 30 gm PO ONCE PRN PRN Reason: Hypoglycemia Stop: 01/06/17 20:14 Sodium Chloride (0.9 % Sodium Chloride) 1,000 mls @ 50 mls/hr IVC .Q20H MT Stop: 01/06/17 20:16 Last Admin: 07/09/16 00:31 Dose: 50 mls/hr Dextrose (Dextrose 5%) 1,000 mls @ 100 mls/hr IVC .Q10H PRN PRN Reason: HYPOGLYCEMIA Stop: 01/06/17 20:14 Insulin Human Lispro (Humalog) 0 units SQ TIDAC [facility] PRN Reason: Protocol Stop: 01/07/17 07:31 Last Admin: 07/09/16 09:08 Dose: Not Given Insulin Human Lispro (Humalog) 0 units SQ HS [facility] PRN Reason: Protocol Stop: 01/06/17 21:01 Last Admin: 07/08/16 20:35 Dose: Not Given Isosorbide Mononitrate (Imdur) 30 mg PO DAILY [facility] Stop: 01/07/17 09:01 Last Admin: 07/09/16 09:08 Dose: 30 mg Lactic Acid (Amlactin) 1 appl TP BID [facility] Stop: 01/06/17 21:01 Last Admin: 07/09/16 09:10 Dose: Not Given Lorazepam (Ativan) 1 mg PO BID [facility] Stop: 01/06/17 21:01 Last Admin: 07/09/16 09:08 Dose: 1 mg Melatonin (Melatonin) 3 mg PO HS [facility] Stop: 01/06/17 22:46 Last Admin: 07/08/16 20:34 Dose: 3 mg Metoprolol Succinate (Toprol Xl) 25 mg PO DAILY [facility] Stop: 01/07/17 09:01 Last Admin: 07/09/16 09:08 Dose: 25 mg Metoprolol Tartrate (Lopressor) 5 mg IVP Q6HR PRN PRN Reason: SEE COMMENTS Stop: 01/06/17 20:14 Morphine Sulfate (Morphine Sulfate) 2 mg IVP Q2H PRN PRN Reason: Severe Pain (7-10) Stop: 01/06/17 20:14 Last Admin: 07/08/16 20:33 Dose: 2 mg Naloxone HCl (Narcan) 0.4 mg IVP Q2MIN PRN PRN Reason: Opioid Reversal Stop: 01/06/17 20:14 Nicotine (Nicoderm) 21 mg TD DAILY PRN; Protocol PRN Reason: Nicotine Cravings Stop: 01/06/17 20:16 Last Admin: 07/09/16 00:31 Dose: 21 mg Nitroglycerin (Nitroglycerin) 0.4 mg SL Q5MIN PRN PRN Reason: Chest Pain Stop: 01/06/17 20:14 Omeprazole (Prilosec) 20 mg PO DAILY [facility] Stop: 01/07/17 09:01 Last Admin: 07/09/16 09:08 Dose: 20 mg Omeprazole (Prilosec) 40 mg PO DAILY@0630 MT PRN Reason: Protocol Stop: 01/09/17 06:31 Oxycodone HCl (Roxicodone) 5 mg PO Q6HR PRN PRN Reason: Moderate Pain (4-6) Stop: 01/06/17 20:14 Promethazine HCl (Phenergan) 12.5 mg IVP Q6HR PRN PRN Reason: Nausea And Vomiting Stop: 01/06/17 20:14 Ranolazine (Ranexa) 1,000 mg PO BID [facility] Stop: 01/06/17 21:01 Last Admin: 07/09/16 09:08 Dose: 1,000 mg Rosuvastatin Calcium (Crestor) 20 mg PO HS [facility] Stop: 01/06/17 21:01 Last Admin: 07/08/16 20:33 Dose: 20 mg Topiramate (Topamax) 200 mg PO BID [facility] Stop: 01/06/17 21:01 Last Admin: 07/09/16 09:07 Dose: 200 mg - Imaging and Cardiology Echo: pending Cardiac cath: report reviewed - EKG Interpretation EKG results cardiology: other (24 hour tele AVG HR 76, nocturnal pauses up to 3.9 seconds.) Consult Discharge Plan - Plan Additional Instructions: RISK FACTORS: STOP SMOKING: If you smoke, STOP. Smoking or tobacco use significantly increases your risk of heart disease because nicotine causes the arteries to narrow or constrict. It also causes fats to stick to the artery. Your chances of having a heart attack are greatly increased if you continue to smoke. For more information, call the education line for smoking cessation 2-507-[id number] EAT A LOW FAT/CHOLESTEROL/SODIUM DIET: This diet may help reduce your chances of having a heart attack. LIFTING: Avoid lifting anything more than 10 pounds for 5-7 days Prior to straining, laughing, sneezing and/or coughing, apply manual pressure directly over insertion site. ACTIVITY: You may walk or climb stairs as tolerated You can resume sexual activity as tolerated In general, you are encouraged to engage in a minimum of 30 minutes or more of moderate intensity physical activity, such as brisk walking, daily or at least 3 -4 times weekly BATHING Do not submerge the site into water (bath tub, hot tub, swimming pool) for 1 week. This can be a source for infection into the blood stream. You may shower after 24 hours SITE CARE: After 24 hours, you may remove the dressing and leave the site open to air. Keep the site clean and dry. Clean gently and pat dry. You can expect bruising and tenderness that gradually resolve within a week or two. Return to work as instructed per your physician Resume driving as instructed per physician Keep all scheduled follow up appointments Resume medications as instructed IMPORTANT: If prescribed a Platelet Aggregation Inhibitor such as, Plavix, Brilinta or Effient: Duration of therapy is minimum one year These medications are often used in combination with Aspirin in prevention of future heart attacks Never discontinue unless consult with your Wall Covering Contractor STROKE (CVA) Risk factors for a stroke are: Age, cigarette smoking, diabetes, excessive alcohol consumption, family history, high blood pressure, overweight, physical inactivity, prior stroke, heart attack, diagnosis of carotid artery stenosis or other artery disease. Warning signs: Sudden numbness or weakness of the face, arm or leg; especially on one side of the body, sudden confusion, trouble speaking or understanding, sudden trouble seeing in one or both eyes, sudden trouble walking, dizziness, loss of balance or coordination, sudden severe headache with no cause. Call 911 or go to the Emergency Room. CONGESTIVE HEART FAILURE: If you have been diagnosed with Congestive Heart Failure (CHF) and your symptoms return, make an appointment with your physician Weigh yourself daily. Notify your physician if you have a weight gain of two or more pounds in one day or five or more pounds in one week. If you experience any difficulty breathing, please call 911 BLEEDING: Although the risk of bleeding is minimal, it can happen. If you have any bleeding from the site, apply firm pressure above the puncture site for 10-15 minutes. If the bleeding does not stop, continue manual pressure and call 911 Contact your physician if: You develop a fever greater than 101 degrees Fahrenheit Your site becomes reddened or has any drainage You have an increase in pain or burning at the site or if a large knot forms at the site. If you experience chest pain, shortness of breath, dizziness, or extreme tiredness, stop the activity and rest. Please notify your physicians office if you experience any of these symptoms and they are not relieved by rest please call 911! Referrals: Cisco Soria DO [Primary Care Provider] - 07/14/16 12:00 pm
[2016-07-09 09:18] LABS: Basophils % 0.3 %; Eosinophils # 0.2 K/mcL (0.0-0.6); Eosinophils % 1.6 %; Hematocrit 42.5 % (35.3-44.9); Hemoglobin 13.6 g/dL (11.5-15.4); Immature Granulocytes % 0.2 % (0-4); Lymphocytes # 2.3 K/mcL (0.6-4.6); Lymphocytes % 23.2 %; Mean Corpuscular Hemoglobin 30.1 pg (28.0-33.3); Mean Platelet Volume 9.4 fL (9.4-12.4); Monocytes # 0.8 K/mcL (0.0-1.3); Monocytes % 7.7 %; Neutrophils # 6.7 K/mcL (1.6-8.9); Platelet Count 237 K/mcL (140-400); Red Blood Count 4.52 M/mcL (3.82-4.97); Red Cell Distribution Width 13.7 % (11.5-14.5)
[2016-07-09 09:29] LABS: BUN/Creatinine Ratio 18 (6-26); Blood Urea Nitrogen 16 mg/dL (7-20); Calcium 9.3 mg/dL (8.6-10.8); Carbon Dioxide 23 mEq/L (19-29); Chloride 112 mEq/L (98-109); Glucose 146 mg/dL (70-99); Osmolality,Calculated 296 (280-300); Potassium 3.9 mEq/L (3.5-4.5); Sodium 141 mEq/L (136-145); eGFR For African Americans > 60 (> 60); eGFR For Non-African Americans > 60 (> 60)
--- NOTE | 2016-07-09 10:03 | ECHO - Doppler Report ---
Echocardiogram Name: Tamia Leonardo Date of Study: 07/08/2016 Date: 1960 Ht: 64.0 in Medical Record#: [id number] Age: 56 Wt: 174.0 lb Gender: Female BSA: 1.84 Order #: [id number] Location: [facility] Room #: 2N15 Reading Physician: Lito Morel DO, FACLuis, BRENDAN Sheet Rock Installer: Kateryna Monahan RDCS Ordering Physician: Shailesh Berrios MD Primary Physician: Cisco Soria DO Indications: ACS Impressions: LVEF 40-45%. Normal LV chamber size and wall thickness. Mild segmental left ventricular systolic dysfunction. Mild left ventricular diastolic dysfunction. Atypical septal motion consistent with post-operative status. Grossly normal right ventricular structure and function. Unable to estimate RVSP due to lack of TR jet. No significant valvular dysfunction. Future studies should be performed with IV contrast enhancement. Left Ventricular Wall Motion: Rest Echo Findings The apex, apical inferior, apical anterior and apical lateral ferreira were hypokinetic. All other wall segments showed normal motion. Findings: Study Quality * Technically sub-optimal due to poor echocardiographic windows. ECG Findings * Sinus bradycardia. Left Ventricle * LVEF 40-45%. * Normal LV chamber size and wall thickness. * Mild segmental left ventricular systolic dysfunction. * Mild left ventricular diastolic dysfunction. * Atypical septal motion consistent with post-operative status. Right Ventricle * Grossly normal right ventricular structure and function. Left Atrium * Mildly dilated left atrium. Right Atrium * Normal right atrial size. Aortic Valve * Trileaflet aortic valve with normal function. * No aortic regurgitation. * No aortic stenosis. Mitral Valve * Mildly thickened mitral valve leaflets. * No mitral regurgitation. * No mitral stenosis. Tricuspid Valve * Normal tricuspid valve structure and function. * No tricuspid regurgitation. * Unable to estimate RVSP due to lack of TR jet. Pulmonic Valve * Pulmonic valve is not well visualized. * No pulmonic regurgitation. Aorta * Normally sized aortic root. Pericardium * The pericardium appears normal. IVC * Normal IVC dimensions and inspiratory collapse. Pulmonary Artery * Normal visualized portions of the main pulmonary artery. History Hypertension Diabetes Hypercholesteremia History of Smoking Years 20 Packs 1.5 History of CAD/PTCA Myocardial Infarction Coronary Artery Bypass Graft Congestive Heart Failure 09/06/2012 a Previous Echo was performed. Measurements: BP: 142/ 85 2D Normal Values RVIDd: 1.96 cm <2.7 cm IVSd: .98 cm 0.6 - 1.0 cm LVIDd: 5.13 cm 3.7 - 5.6 cm LVPWd: .99 cm 0.6 - 1.1 cm LVIDs: 2.98 cm 1.5 - 3.6 cm AO: 2.40 cm < 4.0 cm LA: 3.50 cm 2.0 - 4.0cm %FS: 41.90 cm >25 % LA volume: 44 Mitral Valve Peak E:.74 m/sec Peak A:.94 m/sec E/A Ratio:0.8 Peak E' Lat Luis Alberto:7.4 cm/s Peak E' Med Luis Alberto:7.5 cm/s E/E' Lat Ratio:10 E/E' Med Ratio:9.8 Updated by Lito Morel DO, FACC, VANDA CARDONA on 07/09/2016 9:58:16 AM electronically signed on 07/09/2016 9:58:34 AM with status of Final Wall Motion Zamora: 1=Normal, 2=Hypokinesis, 3=Akinesis, 4=Dyskinesis, 5=Aneurysmal, 6=Hyperkinetic, X=Not Visualized (Blank)=Missing
[2016-07-09 11:08] VITALS: BP 110/75
--- NOTE | 2016-07-09 12:10 | Discharge Summary ---
Date of Encounter: 07/09/16 Time of Encounter: 11:58 - Discharge Diagnosis (1) NSTEMI (non-ST elevated myocardial infarction) Priority: Primary Status: Acute (2) Chest pain Priority: Primary Status: Acute Qualifiers: Chest pain type: precordial pain Qualified Code(s): R07.2 - Precordial pain (3) HTN (hypertension) Priority: Secondary Status: Chronic Qualifiers: Hypertension type: essential hypertension Qualified Code(s): I10 - Essential (primary) hypertension (4) HLD (hyperlipidemia) Priority: Secondary Status: Chronic Qualifiers: Hyperlipidemia type: mixed hyperlipidemia Qualified Code(s): E78.2 - Mixed hyperlipidemia (5) Type 2 diabetes mellitus Priority: Secondary Status: Chronic Qualifiers: Diabetes mellitus complication status: with circulatory complication Diabetes mellitus complication detail: with other circulatory complications Diabetes mellitus correction insulin use: without senior c web developer use Qualified Code( s): E11.59 - Type 2 diabetes mellitus with other circulatory complications (6) CAD (coronary artery disease) Priority: Secondary Status: Chronic Qualifiers: Coronary Disease-Associated Artery/Lesion type: bypass graft [place] vs. transplanted heart: redding heart Associated angina: without angina Qualified Code(s): I25.810 - Atherosclerosis of coronary artery bypass graft(s) without angina pectoris (7) Tobacco abuse Priority: Secondary Status: Chronic (8) COPD (chronic obstructive pulmonary disease) Priority: Secondary Status: Chronic Qualifiers: COPD type: unspecified COPD Qualified Code(s): J44.9 - Chronic obstructive pulmonary disease, unspecified - Discharge Medications Prescriptions: Aspirin 81 mg PO DAILY #30 tab.chew Nicotine Patch [Nicoderm] 14 mg TD DAILY #20 patch.td24 Home Medications: Amitriptyline [Elavil] 25 mg PO BID 01/14/15 [History] Clopidogrel [Plavix] 75 mg PO DAILY 01/14/15 [History] Ezetimibe [Zetia] 10 mg PO DAILY 01/14/15 [History] Furosemide [Lasix] 40 mg PO DAILY 01/14/15 [History] GlipiZIDE [Glucotrol] 5 mg PO DAILY 01/14/15 [History] Isosorbide MONOnitrate (24 HR) [Imdur] 30 mg PO DAILY 01/14/15 [History] LORazepam [Ativan] 1 mg PO BID 01/14/15 [History] Metoprolol XL (24 HR) Succ [Toprol XL] 25 mg PO DAILY 01/14/15 [History] Pantoprazole Sodium [Protonix] 40 mg PO DAILY 01/14/15 [History] Ranolazine [Ranexa] 1,000 mg PO BID 01/14/15 [History] Rosuvastatin [Crestor] 20 mg PO HS 01/14/15 [History] Topiramate [Topamax] 200 mg PO BID 01/14/15 [History] Ammonium Lactate 1 appl TP BID 07/07/16 [History] Cholecalciferol (Vitamin D3) [Vitamin D3] 2,000 unit PO DAILY 07/07/16 [History] Potassium Chloride [K-Tab ER] 20 meq PO DAILY 07/07/16 [History] Aspirin 81 mg PO DAILY #30 tab.chew 07/09/16 [Rx] Nicotine Patch [Nicoderm] 14 mg TD DAILY #20 patch.td24 07/09/16 [Rx] Allergies/Adverse Reactions: Allergies metformin Allergy (Verified 08/12/15 20:36) Anaphylaxis sulfamethoxazole [From Bactrim] Allergy (Verified 07/07/16 17:38) Hives trimethoprim [From Bactrim] Allergy (Verified 07/07/16 17:38) Hives nitroglycerin [From Nitroglyn] Adverse Reaction (Verified 08/12/15 20:36) Hypotension NOVACAINE Allergy (Uncoded 08/12/15 20:36) Hives Date of admission: 07/08/16 13:10 Primary care physician: Carmen Carter Discharging clinician: Sonia Renee Anticipated date of discharge: 07/09/16 - Patient Status Disposition: Home, Self-Care Condition: Good Functional capacity at discharge: independent ambulation Overall status at discharge: patient is progressing back to baseline - Discharge Instructions Instructions: Nicotine (Into the mouth), Aspirin (By mouth), Left Heart Catheterization (DC), Cigarette Smoking and Your Health, [employer] Administrator (GEN) Follow Up With: Cisco Soria DO [Primary Care Provider] - 07/14/16 12:00 pm Lito Morel DO [Partnered Physician] - 07/15/16 2:55 pm Additional Instructions: -RECOMMEND A OUTPATIENT SLEEP STUDY. PLEASE SPEAK TO YOUR PCP. RISK FACTORS: STOP SMOKING: If you smoke, STOP. Smoking or tobacco use significantly increases your risk of heart disease because nicotine causes the arteries to narrow or constrict. It also causes fats to stick to the artery. Your chances of having a heart attack are greatly increased if you continue to smoke. For more information, call the education line for smoking cessation 7-049-HAYMMEK EAT A LOW FAT/CHOLESTEROL/SODIUM DIET: This diet may help reduce your chances of having a heart attack. LIFTING: Avoid lifting anything more than 10 pounds for 5-7 days Prior to straining, laughing, sneezing and/or coughing, apply manual pressure directly over insertion site. ACTIVITY: You may walk or climb stairs as tolerated You can resume sexual activity as tolerated In general, you are encouraged to engage in a minimum of 30 minutes or more of moderate intensity physical activity, such as brisk walking, daily or at least 3 -4 times weekly BATHING Do not submerge the site into water (bath tub, hot tub, swimming pool) for 1 week. This can be a source for infection into the blood stream. You may shower after 24 hours SITE CARE: After 24 hours, you may remove the dressing and leave the site open to air. Keep the site clean and dry. Clean gently and pat dry. You can expect bruising and tenderness that gradually resolve within a week or two. Return to work as instructed per your physician Resume driving as instructed per physician Keep all scheduled follow up appointments Resume medications as instructed IMPORTANT: If prescribed a Platelet Aggregation Inhibitor such as, Plavix, Brilinta or Effient: Duration of therapy is minimum one year These medications are often used in combination with Aspirin in prevention of future heart attacks Never discontinue unless consult with your Industrial Roofer Helper STROKE (CVA) Risk factors for a stroke are: Age, cigarette smoking, diabetes, excessive alcohol consumption, family history, high blood pressure, overweight, physical inactivity, prior stroke, heart attack, diagnosis of carotid artery stenosis or other artery disease. Warning signs: Sudden numbness or weakness of the face, arm or leg; especially on one side of the body, sudden confusion, trouble speaking or understanding, sudden trouble seeing in one or both eyes, sudden trouble walking, dizziness, loss of balance or coordination, sudden severe headache with no cause. Call 911 or go to the Emergency Room. CONGESTIVE HEART FAILURE: If you have been diagnosed with Congestive Heart Failure (CHF) and your symptoms return, make an appointment with your physician Weigh yourself daily. Notify your physician if you have a weight gain of two or more pounds in one day or five or more pounds in one week. If you experience any difficulty breathing, please call 911 BLEEDING: Although the risk of bleeding is minimal, it can happen. If you have any bleeding from the site, apply firm pressure above the puncture site for 10-15 minutes. If the bleeding does not stop, continue manual pressure and call 911 Contact your physician if: You develop a fever greater than 101 degrees Fahrenheit Your site becomes reddened or has any drainage You have an increase in pain or burning at the site or if a large knot forms at the site. If you experience chest pain, shortness of breath, dizziness, or extreme tiredness, stop the activity and rest. Please notify your physicians office if you experience any of these symptoms and they are not relieved by rest please call 911! - Diet and Activity Activity: increase activity as tolerated Diet: diabetic diet, low fat, low cholesterol, low salt diet Hospital course: Ms. Leonardo is a 56 year old female with the above medical problems who presented with chest pain. Initial workup revealed elevation in troponin, and she was started on treatment for non-ST segment elevation MD with anticoagulation, aspirin, beta javon and statin. Cardiology was consulted and patient underwent left heart catheterization which revealed severe three- vessel disease and patient also received PCI/2 drug-eluting stents to SVG to right PDA. Echocardiogram was done which showed mildly decreased EF around 40- 45%, mild left ventricular segmental systolic and left ventricular diastolic dysfunction. She has been doing well postprocedure and is currently medically stable for discharge on dual antiplatelet therapy, uninterrupted for at least 1 year. She has chronic history of smoking, quitting and restarting intermittently and is currently noted to be smoking at least half a pack per day. She has been counseled extensively and verbalized understanding of the risks of continued smoking given her underlying heart disease with multiple stents and CABG in the past, and is motivated to quit smoking. She will be discharged on a limited supply of nicotine transdermal patches and she will follow up with her PCP for further refills as needed. Time spent discussing smoking cessation with patient: 3 to 10 minutes (5min) - Time Spent with Patient Total time spent providing and/or coordinating discharge services: Greater than 30 minutes (45 min) - Constitutional Vitals: Temp Pulse Resp BP Pulse Ox 97.6 F 83 18 110/75 100 07/09/16 11:06 07/09/16 11:06 07/09/16 11:06 07/09/16 11:06 07/09/16 11:06 General appearance: Present: A&O X 3, answers questions appropriately - Respiratory Respiratory exam: Present: CTAB. Absent: accessory muscle use, rales, rhonchi, wheezes - Cardiovascular Cardiovascular exam: Present: RRR, +S1, +S2. Absent: diastolic murmur, gallop, rubs, systolic murmur
--- NOTE | 2016-07-10 11:24 | Electrocardiograph Report ---
[place] [id number] Test Date: 2016-07-08 Pat Name: Tamia Leonardo Department: 110 Room: 2N15 Gender: F Tuck Pointer: : 1960 Requested By: Gabi Renee Order Number: [id number] Reading MD: Lio Pruett MD Measurements Intervals [place] Rate: 92 P: 63 CT: 175 QRS: -6 QRSD: 103 T: 65 QT: 390 QTc: 440 Interpretive Statements SINUS RHYTHM Poor R wave progression Electronically Signed On 07-10-2016 11:23:18 EDT by Lio Pruett MD
== END 2016-07-09 14:15 | disposition home or self-care (01) | DRG 247 ==
LOC: 2NENU 17:31 → EMEROO 17:31 → 2NENU 20:40 → SUATTDRO 07-08 13:10 → 2NNU 07-08 15:02
PROVIDERS: ADMIT Internal Medicine Endocrinology, Diabetes & Metabolism; ATTEND Internal Medicine

== ENCOUNTER 2018-08-19 00:12 | Observation (INO) ==
[2018-08-19] MEDS ORDERED: 0.9 % Sodium Chloride 500 ML IVC ONE (01:12)
[2018-08-19] MEDS ORDERED: Aspirin 81 MG TAB.CHEW PO ONE (01:12)
--- NOTE | 2018-08-19 01:16 | Emergency Department Note ---
Disposition Clinical Impression: Chest pain, rule out acute myocardial infarction, Chest pain with moderate risk of acute coronary syndrome Chest pain Qualifiers: Chest pain type: unspecified Qualified Code(s): R07.9 - Chest pain, unspecified Disposition: Admitted As Inpatient Condition: Fair Time of Disposition: 20:45 General Adult HPI - General Chief complaint: ED Chest Pain Stated complaint: Chest pain Time Seen by Provider: 08/19/18 00:51 Source: patient Limitations: no limitations - History of Present Illness HPI Narrative: History of present illness Chief complaint patient is a 58-year-old white female past medical history of coronary artery disease and bypass states over the past 2-3 weeks has had increasing episodes of chest discomfort with exertion patient states progressively gotten worse in regards to frequency and duration of symptoms patient had symptoms today took aspirin prior to arrival and arrival chest pain- free patient on exam does have some chest wall tenderness to palpation denies any chest pain currently without palpation denies any shortness of breath cough fever chills sweats nausea vomiting diarrhea all others reviewed and are negative Past History reviewed. With Nurses notes Allergy List : Reviewed-and agree with nurses notes Home Medication List : Reviewed-and agree with nurses notes Medical and Surgical History Active Problem List: Reviewed-and agree with nurses notes Family History Reviewed- see -nurses notes Vital Signs and Body Measurements Reviewed- see -nurses notes ROS At Least 10 Organ Systems Reviewed and Negative Except as Indicated Constitutional Denies Chills Fever Night Sweats Weight Loss Other Eye Denies Drainage Eye Pain Redness Vision Change Other Ear Nose Throat Denies Dental Pain Ear Pain Epistaxis Jaw Pain Rhinorrhea Sore Throat Other Cardiovascular Denies Chest Pain Leg Swelling Orthopnea Palpitations Syncope Other Respiratory Denies Cough Dyspnea Dyspnea on Exertion Hemoptysis Wheezing Other Gastrointestinal Denies Abdominal Pain Appetite Change Constipation Diarrhea Melena Nausea Rectal Pain Vomiting Other Genitourinary Denies Discharge Dysuria Flank Pain Hematuria Oliguria Urinary Frequency Urinary Retention Other Musculoskeletal Denies Back Pain Calf Tenderness Joint Pain Neck Pain Other positive chest wall tenderness bilaterally to palpation Neurologic * Denies Headache Memory Deficit Neck Stiffness Numbness Slurred Speech Weakness Skin Denies Diaphoretic Discoloration Jaundice Pruritus Rash Hematologic and Lymphatic Denies Easy Bruising Lymphadenopathy Prolonged Bleeding Allergic and Immunologic Denies Hives Sneezing Tongue Swelling Endocrine Denies Excessive Thirst Fatigue Nocturia Psychiatric Denies Anxiety Depression Hallucination Suicidal Thoughts Physical Examination: All findings normal unless otherwise noted . Constitutional Alert & orientated x 3, No Acute Distress Well Nourished Head and Face :Normocephalic and Atraumatic Eye Extraocular Movement Intact Pupils Equally Round Reactive to light Ear Nose Throat Mucous Membranes Moist No Injury or Deformity Oropharynx Clear Cardiovascular Capillary Refill Less than 2 Seconds No Peripheral Edema Normal S1, S2 Pulses Normal Regular Rate and Rhythm Respiratory Clear to Auscultation Bilaterally Normal Rate and Effort no Respiratory Distress or Stridor Gastrointestinal Abdomen Soft Bowel Sounds Present Not Tender Distended Generalized Tenderness. No Guarding Rebound Rigid Genitourinary No Lesion Normal External Genitalia Musculoskeletal Distal Pulses Normal No Injury or Deformity No Calf Tendernes, no Paraspinous Tenderness or spinal ttp is possible chest wall tenderness to palpation Cervical Lumbar Thoracic Neurologic 5/5 Strength throughout No Focal Deficits Sensation Intact or Slurred Speech Skin Dry No Lesion No Rash Normal Color Warm no Cyanosis Diaphoretic Lymph No Lymphadenopathy or Lymphadenopathy Lymphedema Psychiatric Appropriate Affect Cooperative not Depressed Manic or having Suicidal Thoughts Consulta?on Obtained Date and Time Provider or Group Detail Emergency Department Course Stable Laboratory Results-reviewed see cerner/nurses notes Radiology Reports and Cardiology Results- Reviewed- see -nurses notes and cerner Data Reviewed Medical Decision Making Patient seen and evaluated labs and imaging ordered. Imaging reviewed by myself and radiologist patient did not merit treatment will be admitted for further evaluation and management and care patient for sudden enzymes negative EKG shows normal sinus rhythm regular rate and regular axis patient chest pain-free on admission and will admit for further evaluation and management and disposition Final Diagnostic Impression chest pain chest wall pain, chest pain on exertion Disposition Admit Observation minutes Pain Scale: 5 - Related Data Home Medications Medication Instructions Recorded Confirmed Amitriptyline [Elavil] 25 mg PO BID 01/14/15 08/19/18 Ezetimibe [Zetia] 10 mg PO DAILY 01/14/15 08/19/18 Isosorbide MONOnitrate (24 HR) 60 mg PO DAILY 01/14/15 08/19/18 [Imdur] Pantoprazole Sodium [Protonix] 40 mg PO DAILY 01/14/15 08/19/18 Ranolazine [Ranexa] 1,000 mg PO BID 01/14/15 08/19/18 Topiramate [Topamax] 200 mg PO BID 01/14/15 08/19/18 Cholecalciferol (Vitamin D3) 1,000 unit PO DAILY 07/07/16 08/19/18 [Vitamin D3] Potassium Chloride [K-Tab ER] 20 meq PO DAILY 07/07/16 08/19/18 LORazepam [Ativan] 1 mg PO BID 03/17/18 08/19/18 Latanoprost [Xalatan] 1 drop BOTH EYES HS 03/17/18 08/19/18 Lisinopril [Zestril] 5 mg PO HS 03/17/18 08/19/18 Metoprolol Succinate [Toprol Xl] 25 mg PO DAILY 03/17/18 08/19/18 Rosuvastatin Calcium 20 mg PO HS 03/17/18 08/19/18 glipiZIDE [Glipizide] 10 mg PO BID 03/17/18 08/19/18 Furosemide [Lasix] 40 mg PO DAILY 08/19/18 08/19/18 Previous Rx's Medication Instructions Recorded Aspirin 81 mg PO DAILY #30 tab.chew 07/09/16 Nitroglycerin 0.4 mg SL Q5MIN PRN tab.subl 03/18/18 Allergies Allergy/AdvReac Type Severity Reaction Status Date / Time metformin Allergy Anaphylaxis Verified 08/19/18 00:37 sulfamethoxazole Allergy See Verified 08/19/18 00:37 [From Bactrim] Comments trimethoprim [From Bactrim] Allergy See Verified 08/19/18 00:37 Comments nitroglycerin AdvReac See Verified 08/19/18 00:37 [From Nitroglyn] Comments ticagrelor [From Brilinta] AdvReac Difficulty Verified 08/19/18 00:38 Breathing NOVACAINE Allergy See Uncoded 08/19/18 00:37 Comments Past Medical History - Past Medical History Medical history: Reports: CVA, diabetes, GI bleed, hyperlipidemia, hypertension, myocardial infarction Surgical history: Reports: cholecystectomy, coronary bypass (CABG), hysterectomy Psychiatric history: Reports: no psych history - Social History Smoking Status: Current every day smoker Smokeless Tobacco Status: No Alcohol use: Reports: none Drug use: Reports: none Physical Exam - General Limitations: no limitations General appearance: alert Course Vital Signs Temperature 97.9 F 08/19/18 00:41 Pulse Rate 85 08/19/18 00:41 Respiratory Rate 14 08/19/18 00:41 Blood Pressure 121/63 08/19/18 00:41 O2 Sat by Pulse Oximetry 100 08/19/18 00:41 Temperature 97.7 F 08/19/18 20:23 Pulse Rate 74 08/19/18 20:23 Respiratory Rate 15 08/19/18 20:23 Blood Pressure 104/71 08/19/18 20:23 O2 Sat by Pulse Oximetry 97 08/19/18 20:23 Oxygen Delivery Oxygen Delivery Room Air Medical Decision Making - Lab Data Result diagrams: 08/19/18 01:52 08/19/18 01:52 Lab Results 08/19/18 08/19/18 08/19/18 Range/Units 01:52 01:52 01:52 WBC (4.3-11.1) K/mcL RBC (3.82-4.97) M/mcL Hgb (11.5-15.4) g/dL Hct (35.3-44.9) % MCV (83.0-100.0) fL MCH (28.0-33.3) pg MCHC (31.6-35.5) g/dL RDW (11.5-14.5) % Plt Count (140-400) K/mcL MPV (9.4-12.4) fL Immature Gran % (0-4) % Seg Neutrophils % % Lymphocytes % % Monocytes % % Eosinophils % % Basophils % % Neutrophils # (1.6-8.9) K/mcL Lymphocytes # (0.6-4.6) K/mcL Monocytes # (0.0-1.3) K/mcL Eosinophils # (0.0-0.6) K/mcL Basophils # (0.0-0.2) K/mcL PT 10.6 (9.4-12.1) Seconds INR 0.9 APTT 29.3 (26.0-36.0) Seconds Sodium (136-145) mEq/L Potassium (3.5-5.1) mEq/L Chloride (98-107) mEq/L Carbon Dioxide (23-29) mEq/L BUN (6-20) mg/dL Creatinine (0.60-1.20) mg/dL Est GFR ( Amer) (> 60) Est GFR (Non-Af Amer) (> 60) BUN/Creatinine Ratio (6-26) Glucose (70-105) mg/dL Calculated Osmolality (280-300) Calcium (8.6-10.3) mg/dL Total Bilirubin 0.4 (0.3-1.0) mg/dL Direct Bilirubin 0.1 (0.0-0.2) mg/dL Indirect Bilirubin 0.3 (0.0-1.2) mg/dL AST 19 (13-39) Units/L ALT 18 (7-52) Units/L Alkaline Phosphatase 91 (34-104) Units/L Troponin I (< 0.04) ng/mL B-Natriuretic Peptide 16 (Less than 100) pg/mL Serum Total Protein 7.1 (6.4-8.9) g/dL Albumin 4.1 (3.5-5.7) g/dL Globulin 3.0 (2.4-3.5) g/dL Albumin/Globulin Ratio 1.4 (1.1-2.2) Lipase 47 (11-82) Units/L 08/19/18 08/19/18 Range/Units 01:52 01:52 WBC 8.4 (4.3-11.1) K/mcL RBC 4.48 (3.82-4.97) M/mcL Hgb 13.7 (11.5-15.4) g/dL Hct 42.3 (35.3-44.9) % MCV 94.4 (83.0-100.0) fL MCH 30.6 (28.0-33.3) pg MCHC 32.4 (31.6-35.5) g/dL RDW 14.3 (11.5-14.5) % Plt Count 206 (140-400) K/mcL MPV 9.1 L (9.4-12.4) fL Immature Gran % 0.2 (0-4) % Seg Neutrophils % 49.4 % Lymphocytes % 38.6 % Monocytes % 8.8 % Eosinophils % 2.4 % Basophils % 0.6 % Neutrophils # 4.1 (1.6-8.9) K/mcL Lymphocytes # 3.2 (0.6-4.6) K/mcL Monocytes # 0.7 (0.0-1.3) K/mcL Eosinophils # 0.2 (0.0-0.6) K/mcL Basophils # 0.1 (0.0-0.2) K/mcL PT (9.4-12.1) Seconds INR APTT (26.0-36.0) Seconds Sodium 139 (136-145) mEq/L Potassium 3.7 (3.5-5.1) mEq/L Chloride 109 H (98-107) mEq/L Carbon Dioxide 22 L (23-29) mEq/L BUN 28 H (6-20) mg/dL Creatinine 0.97 (0.60-1.20) mg/dL Est GFR ( Amer) > 60 (> 60) Est GFR (Non-Af Amer) 59 L (> 60) BUN/Creatinine Ratio 29 H (6-26) Glucose 139 H (70-105) mg/dL Calculated Osmolality 296 (280-300) Calcium 9.3 (8.6-10.3) mg/dL Total Bilirubin (0.3-1.0) mg/dL Direct Bilirubin (0.0-0.2) mg/dL Indirect Bilirubin (0.0-1.2) mg/dL AST (13-39) Units/L ALT (7-52) Units/L Alkaline Phosphatase (34-104) Units/L Troponin I < 0.03 (< 0.04) ng/mL B-Natriuretic Peptide (Less than 100) pg/mL Serum Total Protein (6.4-8.9) g/dL Albumin (3.5-5.7) g/dL Globulin (2.4-3.5) g/dL Albumin/Globulin Ratio (1.1-2.2) Lipase (11-82) Units/L
[2018-08-19 02:11] LABS: Basophils # 0.1 K/mcL (0.0-0.2); Basophils % 0.6 %; Eosinophils # 0.2 K/mcL (0.0-0.6); Eosinophils % 2.4 %; Hematocrit 42.3 % (35.3-44.9); Hemoglobin 13.7 g/dL (11.5-15.4); Immature Granulocytes % 0.2 % (0-4); Lymphocytes # 3.2 K/mcL (0.6-4.6); Lymphocytes % 38.6 %; Mean Corpuscular HGB Conc 32.4 g/dL (31.6-35.5); Mean Corpuscular Hemoglobin 30.6 pg (28.0-33.3); Mean Corpuscular Volume 94.4 fL (83.0-100.0); Mean Platelet Volume 9.1 fL (9.4-12.4); Monocytes # 0.7 K/mcL (0.0-1.3); Monocytes % 8.8 %; Neutrophils # 4.1 K/mcL (1.6-8.9); Platelet Count 206 K/mcL (140-400); Red Blood Count 4.48 M/mcL (3.82-4.97); Red Cell Distribution Width 14.3 % (11.5-14.5); Segmented Neutrophils % 49.4 %
[2018-08-19 02:19] LABS: INR 0.9; Prothrombin Time 10.6 Seconds (9.4-12.1)
[2018-08-19 02:21] LABS: Activated Partial Thrombo Time 29.3 Seconds (26.0-36.0)
[2018-08-19 02:28] LABS: Albumin 4.1 g/dL (3.5-5.7); Albumin/Globulin Ratio 1.4 (1.1-2.2); Bilirubin,Direct 0.1 mg/dL (0.0-0.2); Bilirubin,Indirect 0.3 mg/dL (0.0-1.2); Bilirubin,Total 0.4 mg/dL (0.3-1.0); Total Protein 7.1 g/dL (6.4-8.9)
[2018-08-19 02:30] LABS: BUN/Creatinine Ratio 29 (6-26); Blood Urea Nitrogen 28 mg/dL (6-20); Calcium 9.3 mg/dL (8.6-10.3); Carbon Dioxide 22 mEq/L (23-29); Chloride 109 mEq/L (98-107); Glucose 139 mg/dL (70-105); Osmolality,Calculated 296 (280-300); Potassium 3.7 mEq/L (3.5-5.1); Sodium 139 mEq/L (136-145); eGFR For Non-African Americans 59 (> 60)
[2018-08-19 02:33] LABS: Troponin I < 0.03 ng/mL (< 0.04)
[2018-08-19] MEDS ORDERED: Naloxone 0.4 MG/ML INJ IVP PRN (05:25)
[2018-08-19] MEDS ORDERED: *HR* Dextrose 50 % in Water (Syg) 50 ML SYRINGE IVP PRN (05:29)
[2018-08-19] MEDS ORDERED: D5% in Water 1,000 ML IVC PRN (05:29)
[2018-08-19] MEDS ORDERED: Dextrose Gel 15 GM/37.5 ML TUBE PO PRN ×2 (05:29)
--- NOTE | 2018-08-19 05:47 | Internal Med History&Physical ---
Date of Encounter: 08/19/18 Time of Encounter: 05:00 Internal Medicine - H&P: HPI Chief complaint: Chest Pain Admitted From: Home Plans for Post Hospital Care: Home History of present illness: Ms. Leonardo is a 58 year old female with past medical history significant with CAD with CABG and stents x8, DC, hypertension, hyperlipidemia, CVA, chronic kidney disease, GERD, depression, and tobacco abuse who presents for 2 week duration of intermittent pressure like substernal chest pain radiating to both arms and jaw. Pain is occurring more frequently and getting progressively worse. Pain is rated at 10/10 at its worst and associated with shortness of breath. Reports pain is exacerbated with exertion and similar to previous DC's. Reports pain improves with rest and aspirin. ER reported EKG as sinus rhythm. ER also obtained chest xray which showed no acute cardiopulmonary process. Received full dose aspirin while in ER and 500ml fluid bolus. Pantry Chef advised her to take aspirin during episodes of chest pain as she does not tolerate nitro well. Aspirin had been effectively relieving her pain but states it is now becoming less effective. Had another episode of chest pain once arriving to floor while getting up to restroom but pain resolved at rest without intervention. Repeat EKG was obtained at that time with no changes noted. Remains pain free at this time. Denies any headache, chest pain, shortness of breath, abdominal pain, bowel or bladder changes. Had echocardiogram completed in February 2018 during admission for NSTEMI which showed a 40% EF. Also had heart catheterization completed at that time as well showing severe three vessel coronary artery disease and had a stent placed in the mid SVG-RPDA. Follows regularly with PCP, Cardiology, and Podiatry every three months. Checks blood sugars regularly and reports they have been averaging in the 160's. Also checks blood pressures regularly and reports systolic has been averaging in low 100's. Past Med Surg Social Fam HX - Past Medical History Medical history: CVA, diabetes, GI bleed, hyperlipidemia, hypertension, myocardial infarction Additional medical history: cervical cancer Psychiatric history: no psych history - Past Surgical History Surgical History: hysterectomy Additional surgical history: breast reduction, shoulder surgery, patient has had 8 cardiac stents, CABG x 3v - Social History Smoking Status: Current every day smoker Smokeless Tobacco Status: No Alcohol use: none Drug use: none - Family History Mother Living Status: Age at : 80 Cause of : breast ca Hx Family Cardiac Disorders: Yes (heart disease) Hx Family Respiratory Disorders: No Hx Family Cancer: Yes Hx Family GI Disorders: No Hx Family Endocrine Disorder: Yes Hx Family Neuromuscular Disorders: No Hx Family Neurologic Disorders: No Hx Family HEENT Disorders: No Hx Family Autoimmune Disorders: No Father Name: artur Living Status: Cause of : heart disease Hx Family Cardiac Disorders: Yes Hx Family Respiratory Disorders: No Hx Family Cancer: Yes Hx Family GI Disorders: No Hx Family Endocrine Disorder: No Hx Family Neuromuscular Disorders: No Hx Family Neurologic Disorders: No Hx Family HEENT Disorders: No Hx Family Autoimmune Disorders: No Sister Name: holly Living Status: Cause of : hep c Hx Family Cardiac Disorders: Yes Hx Family Respiratory Disorders: No Hx Family Cancer: Yes Hx Family GI Disorders: No Hx Family Endocrine Disorder: No Hx Family Neuromuscular Disorders: No Hx Family Neurologic Disorders: No Hx Family HEENT Disorders: No Hx Family Autoimmune Disorders: No Brother Name: candis Living Status: Age at : 60 Cause of : cancer Hx Family Cancer: Yes (colon) Internal Medicine - H&P: Meds Amitriptyline [Elavil] 25 mg PO BID 01/14/15 [History] Ezetimibe [Zetia] 10 mg PO DAILY 01/14/15 [History] Isosorbide MONOnitrate (24 HR) [Imdur] 60 mg PO DAILY 01/14/15 [History] Pantoprazole Sodium [Protonix] 40 mg PO DAILY 01/14/15 [History] Ranolazine [Ranexa] 1,000 mg PO BID 01/14/15 [History] Topiramate [Topamax] 200 mg PO BID 01/14/15 [History] Cholecalciferol (Vitamin D3) [Vitamin D3] 1,000 unit PO DAILY 07/07/16 [History] Potassium Chloride [K-Tab ER] 20 meq PO DAILY 07/07/16 [History] Aspirin 81 mg PO DAILY #30 tab.chew 07/09/16 [Rx] LORazepam [Ativan] 1 mg PO BID 03/17/18 [History] Latanoprost [Xalatan] 1 drop BOTH EYES HS 03/17/18 [History] Lisinopril [Zestril] 5 mg PO HS 03/17/18 [History] Metoprolol Succinate [Toprol Xl] 25 mg PO DAILY 03/17/18 [History] Rosuvastatin Calcium 20 mg PO HS 03/17/18 [History] glipiZIDE [Glipizide] 10 mg PO BID 03/17/18 [History] Nitroglycerin 0.4 mg SL Q5MIN PRN tab.subl 03/18/18 [Rx] Allergy/AdvReac Type Severity Reaction Status Date / Time metformin Allergy Anaphylaxis Verified 08/19/18 00:37 sulfamethoxazole Allergy See Verified 08/19/18 00:37 [From Bactrim] Comments trimethoprim [From Bactrim] Allergy See Verified 08/19/18 00:37 Comments nitroglycerin AdvReac See Verified 08/19/18 00:37 [From Nitroglyn] Comments ticagrelor [From Brilinta] AdvReac Difficulty Verified 08/19/18 00:38 Breathing NOVACAINE Allergy See Uncoded 08/19/18 00:37 Comments All Systems PM: A 10-system review of systems was performed and is negative for pertinent findings except as documented above in the HPI. - Constitutional Vitals: Temp Pulse Resp BP Pulse Ox 98.3 F 77 17 156/95 100 08/19/18 04:41 08/19/18 04:41 08/19/18 04:41 08/19/18 04:41 08/19/18 04:41 Exam: General: Alert and oriented. Skin:Normal color, no rash, no lesions. HEENT:Pupils equal, round and reactive. Cardiovascular:Normal S1 & S2, no rubs, murmurs or gallops. No JVD. Pulse regular. Lungs:Breath sounds decreased, no wheezes or crackles. Abdomen:Soft, non-tender, no rigidity. Extremities:No deformity, no edema or tenderness, no joint swelling or clubbing. Neurological:Normal cognition and motor skills. Pulses:Carotid and radial pulses normal +2. Rest of the physical exam is non contributory. Internal Med - H&P Results - Labs CBC & Chem 7: 08/19/18 01:52 08/19/18 01:52 Labs: Short CBC 08/19/18 Range/Units 01:52 WBC 8.4 (4.3-11.1) K/mcL Hgb 13.7 (11.5-15.4) g/dL Hct 42.3 (35.3-44.9) % Plt Count 206 (140-400) K/mcL Neutrophils # 4.1 (1.6-8.9) K/mcL BMP 08/19/18 01:52 Sodium 139 Potassium 3.7 Chloride 109 H Carbon Dioxide 22 L BUN 28 H Creatinine 0.97 Glucose 139 H Calcium 9.3 Cardiac Enzymes 08/19/18 Range/Units 01:52 Troponin I < 0.03 (< 0.04) ng/mL Liver Function 08/19/18 Range/Units 01:52 Total Bilirubin 0.4 (0.3-1.0) mg/dL Direct Bilirubin 0.1 (0.0-0.2) mg/dL AST 19 (13-39) Units/L ALT 18 (7-52) Units/L Alkaline Phosphatase 91 (34-104) Units/L Albumin 4.1 (3.5-5.7) g/dL - Impressions ITS Impressions Chest X-Ray 08/19/18 01:12 IMPRESSION: No acute cardiopulmonary process. D/ / Roberto Sessions / Roberto Sessions Interpreting Provider: Roberto Sessions - Assessment and Plan (1) Chest pain Current Visit: Yes Status: Acute Assessment and plan: Currently resolved. Continuous cardiac monitoring. Initial troponin negative, serial troponins ordered. Cardiology consult ordered, will need called in a.m. Qualifiers: Chest pain type: unspecified Qualified Code(s): R07.9 - Chest pain, uns pecified (2) Chronic kidney disease Current Visit: Yes Status: Chronic Assessment and plan: Chronic renal disease. BUN currently 28 previous 25, creatinine currently 0.97, GFR currently 59 previous 50. Avoid nephrotoxins. Qualifiers: Chronic kidney disease stage: unspecified stage Qualified Code(s): N18.9 - Chronic kidney disease, unspecified (3) Diabetes mellitus Current Visit: Yes Status: Chronic Assessment and plan: Hold home medications. Sliding scale insulin ordered. Accuchecks q6 hours. Qualifiers: Diabetes mellitus type: type 2 Qualified Code(s): E11.9 - Type 2 diabetes mellitus without complications (4) Tobacco abuse Current Visit: Yes Status: Chronic Assessment and plan: Cessation strongly encouraged. - Time Spent With Patient Total time spent is greater than 50% in coordination of care (as documented) at patient's floor/unit and/or counseling patient:
[2018-08-19] MEDS: Insulin LISPRO 300 UNITS/3 ML VIAL SQ SCH ×2 (06:05→12:00)
--- NOTE | 2018-08-19 09:27 | Electrocardiograph Report ---
[address] [place], [place] [address] Test Date: 2018-08-19 Pat Name: Tamia Leonardo Department: 114 Room: [facility] Gender: F Support Representative: : 1960 Requested By: Mehdi [place] Order Number: [id number] Reading MD: Lito Morel Measurements Intervals [place] Rate: 86 P: 42 OR: 203 QRS: 15 QRSD: 113 T: -8 QT: 405 QTc: 448 Interpretive Statements SINUS RHYTHM SEPTAL MYOCARDIAL INFARCTION, PROBABLY OLD Electronically Signed On 08-19-2018 9:26:03 EDT by Lito Morel
--- NOTE | 2018-08-19 09:27 | Electrocardiograph Report ---
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
[2018-08-19] MEDS ORDERED: Nitroglycerin 0.4 MG TAB.SUBL SL PRN (10:44)
--- NOTE | 2018-08-19 11:03 | Cardiology Consult Note ---
Date of Encounter: 08/19/18 Time of Encounter: 11:00 Assessment and Plan (1) HTN (hypertension) Current Visit: No Status: Chronic continue home medical therapy, controlled at home Qualifiers: Hypertension type: essential hypertension Qualified Code(s): I10 - Essential (primary) hypertension (2) COPD (chronic obstructive pulmonary disease) Current Visit: No Status: Chronic Qualifiers: COPD type: unspecified COPD Qualified Code(s): J44.9 - Chronic obstructive pulmonary disease, unspecified (3) Unstable angina Current Visit: No Status: Acute A/R/B of [facility] dw patient including 1% chance of [place]//CVA/CABG/[place]/bleeding. Pt aware and agreeable with proceeding. Continue DAPT, BB, statin as tolerated. She has no upcoming surgeries and is medically compliant Discussion w patient/family: The assessment and plan as outlined above was discussed with the patient and/or family members who expressed understanding and agreement. All questions were answered. Thank you for involving us in the care of your patient. Please call with any questions. History of Present Illness Consult date: 08/19/18 Consult reason: [place] Chief complaint: chest pain History of present illness: Ms. Leonardo is a 58 year old female with history of CAD sp 2 vsl CABG, mild systo lic CHF EF 40%, PCI SVG PDA 02/2018 presents with 2 week onset of her typical angina that has been worsening. It occurs with decreasing amount of physical exertion (going to mailbox) and now is awakening her from sleep with 10/10 associated with dyspnea which is why she came to ED. She takes additional aspirin when this happens because NTG causes her to be hypotensive. She states she has been religiously adhering to her plavix, aspirin and antianginals. She denies any upcoming surgeries/procedures and is not bleeding. Past Med Surg Social Fam HX - Past Medical History Medical history: CVA, diabetes, GI bleed, hyperlipidemia, hypertension, myocardial infarction Additional medical history: cervical cancer Psychiatric history: no psych history - Past Surgical History Surgical History: hysterectomy Additional surgical history: breast reduction, shoulder surgery, patient has had 8 cardiac stents, CABG x 3v - Social History Smoking Status: Current every day smoker Smokeless Tobacco Status: No Alcohol use: none Drug use: none - Family History Mother Living Status: Age at : 80 Cause of : breast ca Hx Family Cardiac Disorders: Yes (heart disease) Hx Family Respiratory Disorders: No Hx Family Cancer: Yes Hx Family GI Disorders: No Hx Family Endocrine Disorder: Yes Hx Family Neuromuscular Disorders: No Hx Family Neurologic Disorders: No Hx Family HEENT Disorders: No Hx Family Autoimmune Disorders: No Father Name: artur Living Status: Cause of : heart disease Hx Family Cardiac Disorders: Yes Hx Family Respiratory Disorders: No Hx Family Cancer: Yes Hx Family GI Disorders: No Hx Family Endocrine Disorder: No Hx Family Neuromuscular Disorders: No Hx Family Neurologic Disorders: No Hx Family HEENT Disorders: No Hx Family Autoimmune Disorders: No Sister Name: holly Living Status: Cause of : hep c Hx Family Cardiac Disorders: Yes Hx Family Respiratory Disorders: No Hx Family Cancer: Yes Hx Family GI Disorders: No Hx Family Endocrine Disorder: No Hx Family Neuromuscular Disorders: No Hx Family Neurologic Disorders: No Hx Family HEENT Disorders: No Hx Family Autoimmune Disorders: No Brother Name: candis Living Status: Age at : 60 Cause of : cancer Hx Family Cancer: Yes (colon) Medications and Allergies Amitriptyline [Elavil] 25 mg PO BID 01/14/15 [History] Ezetimibe [Zetia] 10 mg PO DAILY 01/14/15 [History] Isosorbide MONOnitrate (24 HR) [Imdur] 60 mg PO DAILY 01/14/15 [History] Pantoprazole Sodium [Protonix] 40 mg PO DAILY 01/14/15 [History] Ranolazine [Ranexa] 1,000 mg PO BID 01/14/15 [History] Topiramate [Topamax] 200 mg PO BID 01/14/15 [History] Cholecalciferol (Vitamin D3) [Vitamin D3] 1,000 unit PO DAILY 07/07/16 [History] Potassium Chloride [K-Tab ER] 20 meq PO DAILY 07/07/16 [History] Aspirin 81 mg PO DAILY #30 tab.chew 07/09/16 [Rx] LORazepam [Ativan] 1 mg PO BID 03/17/18 [History] Latanoprost [Xalatan] 1 drop BOTH EYES HS 03/17/18 [History] Lisinopril [Zestril] 5 mg PO HS 03/17/18 [History] Metoprolol Succinate [Toprol Xl] 25 mg PO DAILY 03/17/18 [History] Rosuvastatin Calcium 20 mg PO HS 03/17/18 [History] glipiZIDE [Glipizide] 10 mg PO BID 03/17/18 [History] Nitroglycerin 0.4 mg SL Q5MIN PRN tab.subl 03/18/18 [Rx] Allergy/AdvReac Type Severity Reaction Status Date / Time metformin Allergy Anaphylaxis Verified 08/19/18 00:37 sulfamethoxazole Allergy See Verified 08/19/18 00:37 [From Bactrim] Comments trimethoprim [From Bactrim] Allergy See Verified 08/19/18 00:37 Comments nitroglycerin AdvReac See Verified 08/19/18 00:37 [From Nitroglyn] Comments ticagrelor [From Brilinta] AdvReac Difficulty Verified 08/19/18 00:38 Breathing NOVACAINE Allergy See Uncoded 08/19/18 00:37 Comments All Systems Review: The remainder of the systems were reviewed and are negative - Constitutional Constitutional: no chills, no fever(s) - EENT Eyes: no blurred vision, no loss of vision Nose, mouth and throat: no odynophagia, no sinus pain - Cardiovascular Cardiovascular: no claudication, no diaphoresis - Respiratory Respiratory: no hemoptysis, no wheezing - Gastrointestinal Gastrointestinal: no hematemesis, no hematochezia - Genitourinary Genitourinary: no dysuria, no hematuria - Musculoskeletal Musculoskeletal: no muscle cramps, no muscle weakness - Integumentary Integumentary: no rash, no unusual bruising - Neurological Neurological: no syncope, no tingling - Psychiatric Psychiatric: no hallucinations, no panic attacks - Hematological/Lymphatic Hematologic/Lymphatic: no easy bleeding, no easy bruising Physical Examination General: Conversant HEENT: Atraumatic Neck: No JVD Cardiac: Reg Rate and Rhythm Lungs: Normal Breath Sounds Neuro: Alert and responsive Abdomen: Soft Skin: No rashes noted on visualized skin Musculoskeletal: No Chest Wall Tenderness Extremities: No Edema Results 08/19/18 01:52 08/19/18 01:52 Lab Results 08/19/18 08/19/18 08/19/18 01:52 01:52 01:52 WBC Hgb Hct Plt Count INR 0.9 APTT 29.3 Sodium Potassium Chloride Carbon Dioxide BUN Creatinine Glucose Calcium Total Bilirubin 0.4 AST 19 ALT 18 Alkaline Phosphatase 91 Troponin I B-Natriuretic Peptide 16 Lipase 47 08/19/18 08/19/18 08/19/18 01:52 01:52 08:09 WBC 8.4 Hgb 13.7 Hct 42.3 Plt Count 206 INR APTT Sodium 139 Potassium 3.7 Chloride 109 H Carbon Dioxide 22 L BUN 28 H Creatinine 0.97 Glucose 139 H Calcium 9.3 Total Bilirubin AST ALT Alkaline Phosphatase Troponin I < 0.03 < 0.03 B-Natriuretic Peptide Lipase - Imaging and Cardiology Echo: report reviewed Cardiac cath: image reviewed (pci svg pda) - EKG Interpretation EKG results cardiology: personally reviewed, sinus rhythm, no diagnostic ischemia Consult Discharge Plan - Plan Referrals: Cisco Soria DO [Primary Care Provider] -
[2018-08-19] MEDS ORDERED: Nitroglycerin 1,000 MCG/10 ML VIAL IV ONE (13:01)
[2018-08-19] MEDS ORDERED: 0.9 % Sodium Chloride 1,000 ML ONE ×2 (13:01→13:20)
[2018-08-19] MEDS ORDERED: Heparin 1,000 UNITS/500 mL 500 ML ONE (13:01)
[2018-08-19] MEDS ORDERED: ISOVUE-370 200 ML INFUS..BTL ONE ×2 (13:01→13:08)
[2018-08-19] MEDS ORDERED: *HR* Heparin 10,000 UNIT/10 ML VIAL ONE (13:01)
[2018-08-19] MEDS ORDERED: Verapamil 5 MG/2 ML VIAL ONE (13:08)
--- NOTE | 2018-08-19 13:08 | Pre-Sedation Evaluation ---
Pre-sedation evaluation - Pre-sedation checklist Date of procedure: 08/19/18 Procedure: heart cath Recent Vitals: Last Vital Signs Temp 97.9 F 08/19/18 11:40 Pulse 76 08/19/18 11:40 Resp 16 08/19/18 11:40 BP 109/72 08/19/18 11:40 Pulse Ox 96 08/19/18 11:40 H&P (including ROS) documented in medical record: Yes Previous reaction to sedatives/anesthetics: No Dietary Status: NPO after Midnight Airway Assessment: Patient can open mouth completely, TMJ function normal Dentition: poor dentition, dentures removed Possible difficult airway: No ASA Classification *see protocol: CLASS II-Mild systemic disease Plan of Care: Pt appropriate candidate for procedure/moderate/conscious sedation Cardiac Registry (Cardio Only) - Functional Capacity Functional Capacity: >=4 METS with symptoms - Clincal Frailty Scale Clinical Frailty Scale: Well
[2018-08-19] MEDS ORDERED: *HR* Midazolam HCl 2 MG/2 ML VIAL ONE (13:18)
--- NOTE | 2018-08-19 13:22 | Event Note ---
Date of Encounter: 08/19/18 Time of Encounter: 13:21 Patient seen and examined at bedside. Patient reports a mild ache but otherwise states her chest pain that led to admission has resolved Heart: Regular rate and rhythm, no murmurs, rubs, gallops Chest pain: Similar to previous anginal pain. Cardiology has been consulted and plan for left heart catheterization today.
[2018-08-19] MEDS ORDERED: *HR* FentaNYL (PF) 100 MCG/2 ML VIAL ONE (13:25)
--- NOTE | 2018-08-19 13:57 | Event Note ---
Date of Encounter: 08/19/18 Time of Encounter: 13:55 - Cardiology Event Note Cath completed LVEF 40% RCA:100% prox with good collateral from the left. 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
--- NOTE | 2018-08-19 14:05 | Invasive Diagnostic Lab Proc ---
Name: Tamia Leonardo Date of Study: 08/19/2018 Date: 1960 Ht: 64.2in Medical Record#: [id number] Age: 58 Wt: 185.19lb Gender: Female BSA: 1.9 Order #: [id number] BMI: 31.62 Physicians Procedure Physician: Kenton Aguilar MD Referring MD: Referring MD: Staff Name Position Time In DonisSunshine RN Monitor 01:12 PM Migel Tsai RN Nurse 01:12 PM Toby Howell RN Forecast Analyst 01:12 PM Ramakrishna Felton RT (R) Scrub 01:12 PM Indications Indication Unstable Angina Procedures Performed Procedure L HRT ART/GRFT ANGIO Pre-Procedure Checklist Informed consent is complete signed and on chart. H&P is on chart. ID band is on and ID verified with patient. Patient NPO for procedure The procedure was described for the patient and questions were answered. ECG is on chart. Plan of Care Patient will tolerate the procedure without complications. Adequate level of comfort will be maintained. Hemodynamics will remain stable Patient will recover from procedure without complications. Respiratory function will be maintained. Cardiac rhythm will remain stable. Patient temperature will be maintained. Patient and/or family have verbalized understanding of the procedure. Patient Education Chief Complaint/Reason for Test: Cardiac Cath Developmental Category: Adult (18-64 years) Developmentally Appropriate for Age: Yes Learning Barriers: None Education Needs: Procedure Education Method: Verbal Information Taught: Cardiac Cath Educational Evaluation: Able to repeat information Intravenous Access Time IV Size Location DC'd Fluid/Drip Rate Units RN 18g 1 /" Patent On Arrival 0.9NaCl Allergies NOVACAINE bactrim sulfamethoxazole trimethoprim metformin nitroglycerin ticagrelor Vital Signs Time BP (mmHg) HR (bpm) O2 Sat. RR (bpm) LOC 01:12 PM / % 5 = Fully awake and oriented or at pre-proc level 01:12 PM / % 4 = Oriented but drowsy 01:19 PM 144 / 87 100 100 % 15 01:23 PM 148 / 84 88 99 % 18 01:28 PM 117 / 71 79 96 % 15 01:33 PM 117 / 66 83 96 % 18 01:38 PM 121 / 75 82 95 % 30 01:27 PM / % 4 = Oriented but drowsy Procedural Medications Time Medication Dose Units Method Given By 01:20 PM Versed 2 mg Intravenous Toby Howell RN 01:25 PM Lidocaine 2% 10 ml Subcutaneous Kenton Aguilar MD 01:25 PM Oxygen 2 L/min nasal cannula Toby Howell RN ASA Classification: CLASS II- Mild systemic disease (i.e. well-controlled diabetes, hypertension, asthma, cigarette smoking) Nohemi Score Preprocedure Postprocedure Activity 2- Moves 4 extremities sustained head lift Activity 2- Moves 4 extremities sustained head lift Circulation 2- SBP +/= 20 points of pre-anesthetic level Circulation 2- SBP +/= 20 points of pre-anesthetic level Consciousness 2- Awake and alert oriented x 3 Consciousness 2- Awake and alert oriented x 3 O2 Saturation 2- Able to maintain O2 satruation of 92% on room air O2 Saturation 2- Able to maintain O2 satruation of 92% on room air Respiratory 2- Able to deep breathe and cough well Respiratory 2- Able to deep breathe and cough well Total Score 10 Total Score 10 Contrast Agent: Isovue Diagnostic Contrast: 80 ml Total Contrast: 80 ml Fluoro Dose: 25 mGy Procedure Log Time Note Enter By 01:12 PM Pt arrived to medical laboratory scientist 2 at 13:12 oumm 01:12 PM Sunshine Dykes RN Position: Monitor Time in: 13:12 mm 01:12 PM Migel Tsai RN Position: Nurse Time in: 13:12 01:12 PM Toby Howell RN Position: Forecast Analyst Time in: 13:12 mm 01:12 PM Ramakrishna Felton RT (R) Position: Scrub Time in: 13:12 mm 01:12 PM Patient charges- Angio tray pack, Navilyst 3mm J, Pulse Oximetry and ACIST tubing and transducer tsoumm 01:12 PM Case Delayed No oummers 01:12 PM Physician arrived 13:12 mm 01:12 PM Ilia and neda completed mm 01:12 PM Sign in performed according to hospital policy. Informed consent was obtained. oumm 01:12 PM Procedure start 13:12 tsoummers 01:12 PM ASA Class CLASS II- Mild systemic disease (i.e. well-controlled diabetes, hypertension, asthma, cigarette smoking) tsoumm 01:12 PM Time: 13:12 Patient comfortable and pain free: No tsoummers 01:12 PM Time: 13:12LOC: 5 = Fully awake and oriented or at pre-proc level tsoummers 01:13 PM CathStat :18 PM Vitals capture started with the following parameters, Patient=Adult, Interval=5 min, Initial Izgelaml=368 mmHg, Deflation Rate=5 mmHg, Cuff placed on Left Arm 01:19 PM Recorded ECG: HR=93 Condition=Condition 1 01:19 PM CK=966 bpm, WXAR=239/87 mmhg, YjX6=512.0 %, Resp=15 B/min 01:20 PM Time: 13:20 Versed 2 mg Intravenous Given by Toby Howell RN radha :20 PM Time: 13:20 Oxygen on at 2 L/min per nasal cannula by Toby Howell RN radha :23 PM HR=88 bpm, NLBF=011/84 mmhg, SpO2=99.0 %, Resp=18 B/min 01:24 PM Pressure channel 2 zeroed. 01:25 PM Time out was performed according to hospital policy. Conscious sedation and anesthesia was achieved (see medication log with in this report above) oumm: PM Time: 13:25 10 ml Lidocaine 2% to right groin Subcutaneous Given by Kenton Aguilar MD : PM Access obtained by percutaneous puncture. 5Fr 10cm Terumo [place] sheath placed in right Femoral artery. [id number] oummers : PM 0.035 145cm Navilyst 3mmJ wire [id number] oumm: PM 5Fr FR 4 catheter inserted over the wire DNC oumm: PM wire removed tsoummers : PM Time: 13:12 Patient comfortable and pain free: Yes tsoummers : PM Time: 13:12LOC: 4 = Oriented but drowsy tsoummers : PM Coronary Dominance: right tsoumm: PM RCA angiography performed in One view. tsoummers : PM HR=79 bpm, XBZS=467/71 mmhg, SpO2=96.0 %, Resp=15 B/min 01: PM Recorded Pressure: Ao, HR=79, Condition=Condition 1 (Aorta) Ao 116/67/87 01:29 PM Left DELORIS to the LAD angio performed in multiple views. tsoummers 01:29 PM Catheter removed tsoummers 01:30 PM 5Fr MPA catheter inserted over the wire [id number] tsoummers 01:31 PM SVG to the RPDA angio performed in multiple views. tsoummers 01:31 PM Recorded Pressure: Ao, HR=80, Condition=Condition 1 (Aorta) Ao 113/69/88 01:32 PM Catheter removed tsoumm 01:33 PM 5Fr FL 4 catheter inserted over the wire [facility] tsoummers 01:33 PM LCA angiography performed in multiple views. tsoummers 01:33 PM Recorded Pressure: Ao, HR=82, Condition=Condition 1 (Aorta) Ao 107/59/79 01:33 PM HR=83 bpm, HQGM=512/66 mmhg, SpO2=96.0 %, Resp=18 B/min, EtCO2=34 mmHg 01:34 PM Catheter removed tsoummers 01:34 PM 5Fr Pigtail catheter inserted over the wire [facility] tsoummers 01:34 PM Catheter crossed the aortic valve and was selectively placed in the left ventricle. Pressures recorded on pullback for left heart catheterization. tsoummers 01:35 PM Recorded Pressure: LV, HR=88, Condition=Condition 1 (Left Ventricle) LV 123/5/13 01:35 PM Recorded Pressure: LV, HR=87, Condition=Condition 1 (Left Ventricle) LV 122/5/11 01:35 PM Bolus angiogram of left Ventricle complete: hand injection tsoummers 01:36 PM Recorded Pressure: LV, Ao, HR=86, Condition=Condition 1 (Left Ventricle) LV 120/9/12, (Aorta) Ao 120/62/87 01:36 PM Catheter removed tsoummers 01:36 PM Bolus angiogram of right Femoral complete: hand injection tsoummers 01:36 PM Procedure completed at 13:36 08/19/2018 tsoummers 01:36 PM Did you address CRISTINA flow and Dominance? YesCoronary Dominance: right tsoummers 01:37 PM Sign out completed: Radiation Dose 223.63 mGy, 25 Gy/cm2 Fluoro Time: 3.1 Isovue 370 - 200ml contrast 80 ml given by Kenton Aguilar MD. Complications: None. The patient was discharged out of the cardiac cath technologist in stable condition. Sedation minutes 17. Cardiac Rehab Consult needed: No. Confirmed administered medications: Yes oumm 01:37 PM Isovue 370 - 200ml,1 Bottle(s) used. oumm 01:37 PM Estimated Blood Loss: minimal oumm 01:37 PM Post ECG NSR tsoumm 01:38 PM Post Blood Pressure 117/66 tsoummers 01:38 PM Information taught Cardiac Cath and Perclose mm 01:38 PM Education needs Procedure, Plan of Care, and Responsibilities of Patient in Care mm 01:38 PM Learning barriers :None mm 01:38 PM Education Methods Verbal mm 01:38 PM Education evaluation Able to repeat information mm 01:38 PM HR=82 bpm, AQAK=951/75 mmhg, SpO2=95.0 %, Resp=30 B/min 01:39 PM Arterial sheath pulled, Perclose closure device used and was Successful [id number] S/N. oumm 01:39 PM Family placed in consult room. tsoumm 01:39 PM Complications: None tsoumm 01:39 PM Delay to floor No tsoummers 01:39 PM Plavix, Effient or Brilinta given No tsoummers 01:39 PM Site status No bleeding/hematoma - Rt Groin as reported by Ramakrishna Felton RT (R) at 13:39 tsoummers 01:39 PM Opsite applied tsoummers 01:42 PM Report given to erma LEE Pt taken to [facility] Room #26. 13:41 tsoummers 01:42 PM Time: 13:27LOC: 4 = Oriented but drowsy tsoummers 01:42 PM Time: 13:27 Patient comfortable and pain free: Yes tsoummers 01:50 PM Lesion found in Proximal RCA. Pre Stenosis: 100 Pre CRISTINA Flow: tsoummers 01:50 PM Lesion found in Proximal LAD. Pre Stenosis: 100 Pre CRISTINA Flow: tsoummers 01:51 PM Lesion found in Proximal LMCA. Pre Stenosis: 100 Pre CRISTINA Flow: tsoummers 01:54 PM Patient out of room: 13:54 tsoummers Complications Complication None Hemodynamics Pressures Site Systolic/A Wave Diastolic/V Wave Mean AO 116 67 87 AO 113 69 88 AO 107 59 79 LV 123 5 13 LV 122 5 11 LV 120 9 12 AO 120 62 87 Post Procedure Information Blood Pressure: 117/66 mmHg Rhythm: NSR Post procedural instructions were given Closure Device Time Device Success/Fail 08/19/2018 1:39:00 PM Perclose ProGlide Successful Site Checks Time Location Status Staff Sheath In? Note 01:39 PM Rt Groin No bleeding/hematoma Ramakrishna Felton RT (R) Pulses Time Site Pre-Procedure Post-Procedure Note Bilateral DP & PT 1+ Bilateral radial 2+ Updated by Sunshine Dykes RN on 08/19/2018 1:56:44 PM electronically signed on 08/19/2018 1:57:08 PM with status of Final
[2018-08-19] MEDS: Ranolazine 500 MG TAB.ER.12H PO SCH (20:54)
[2018-08-19] MEDS ORDERED: Insulin LISPRO 300 UNITS/3 ML VIAL SQ SCH (21:00)
[2018-08-19] MEDS ORDERED: *HR* LORazepam 1 MG TABLET PO PRN (21:26)
[2018-08-20 07:52] LABS: Basophils % 0.4 %; Eosinophils # 0.2 K/mcL (0.0-0.6); Eosinophils % 2.4 %; Hematocrit 44.4 % (35.3-44.9); Immature Granulocytes % 0.1 % (0-4); Lymphocytes # 2.9 K/mcL (0.6-4.6); Lymphocytes % 35.9 %; Mean Corpuscular HGB Conc 31.5 g/dL (31.6-35.5); Mean Corpuscular Hemoglobin 29.9 pg (28.0-33.3); Mean Corpuscular Volume 94.9 fL (83.0-100.0); Mean Platelet Volume 9.4 fL (9.4-12.4); Monocytes # 0.5 K/mcL (0.0-1.3); Monocytes % 6.5 %; Neutrophils # 4.4 K/mcL (1.6-8.9); Platelet Count 217 K/mcL (140-400); Red Blood Count 4.68 M/mcL (3.82-4.97); Red Cell Distribution Width 14.3 % (11.5-14.5); Segmented Neutrophils % 54.7 %
[2018-08-20 07:53] LABS: BUN/Creatinine Ratio 20 (6-26); Blood Urea Nitrogen 19 mg/dL (6-20); Calcium 9.3 mg/dL (8.6-10.3); Carbon Dioxide 22 mEq/L (23-29); Chloride 109 mEq/L (98-107); Glucose 187 mg/dL (70-105); Osmolality,Calculated 299 (280-300); Potassium 4.2 mEq/L (3.5-5.1); Sodium 141 mEq/L (136-145); eGFR For Non-African Americans 59 (> 60)
[2018-08-20] MEDS ORDERED: Isosorbide MONOnitrate (24 HR) 30 MG TAB.ER.24H PO SCH (09:00)
[2018-08-20] MEDS ORDERED: Metoprolol XL (24 HR) Succ 50 MG TAB.ER.24H PO SCH (09:00)
[2018-08-20] MEDS ORDERED: Metoprolol XL (24 HR) Succ 25 MG TAB.ER.24H PO SCH (09:00)
[2018-08-20] MEDS ORDERED: Aspirin Enteric Coated 81 MG Tablet PO SCH (09:00)
[2018-08-20] MEDS ORDERED: Isosorbide MONOnitrate (24 HR) 60 MG TAB.ER.24H PO SCH (10:15)
--- NOTE | 2018-08-20 10:15 | Cardiology Progress Note ---
Date of Encounter: 08/20/18 Time of Encounter: 10:12 Assessment and Plan (1) Chest pain Current Visit: No Status: Acute [facility] yesterday d/t unstable angina. RCA 100% prox with good collateral from the left. SVG to rca patent but severe disease and poor klever 2 flow. ADAMS to lad patent LAD occluded. 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 Right femoral access site healing well. No bleeding, hematoma or ecchymosis n oted. Denies chest pain overnight. Continue ASA, Plavix, Statin, BB, nitrates. Will increase Imdur to 120mg daily. 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 Cardiology signing off. Reconsult PRN. Qualifiers: Chest pain type: unspecified Qualified Code(s): R07.9 - Chest pain, unspecified (2) CAD (coronary artery disease), viejas coronary artery Current Visit: No Status: Chronic As above. Qualifiers: Associated angina: angina presence unspecified Qualified Code(s): I25.10 - Atherosclerotic heart disease of viejas coronary artery without angina pectoris Discussion w patient/family: The assessment and plan as outlined above was discussed with the patient and/or family members who expressed understanding and agreement. All questions were answered. Thank you for involving us in the care of your patient. Please call with any questions. I will discuss all the above with Dr. Aguilar and make changes as necessary. Subjective Principal diagnosis: Angina Interval history: Denies chest pain overnight. No acute complaints. Objective Vital Signs, Last 4 Hours Temp Pulse Resp BP Pulse Ox 08/20/18 07:30 98.0 F 96 16 112/76 98 Vital Signs Temp Pulse Resp BP Pulse Ox 08/20/18 07:30 98.0 F 96 16 112/76 98 08/20/18 03:12 98.0 F 70 17 102/69 99 08/19/18 22:38 97.6 F 72 18 109/74 99 08/19/18 20:23 97.7 F 74 15 104/71 97 08/19/18 19:05 97.7 F 85 17 93/64 98 08/19/18 18:45 98.1 F 89 16 102/67 95 08/19/18 17:49 98.0 F 81 16 107/65 96 08/19/18 16:43 97.7 F 84 16 96/61 97 08/19/18 15:51 98.0 F 86 17 109/71 96 08/19/18 15:20 98.0 F 83 18 103/60 98 08/19/18 14:50 97.7 F 80 18 107/71 99 08/19/18 14:35 97.7 F 82 18 106/73 98 08/19/18 14:20 97.7 F 80 16 102/68 99 08/19/18 14:05 97.6 F 71 15 107/68 97 08/19/18 11:40 97.9 F 76 16 109/72 96 08/19/18 11:31 97.9 F 76 16 109/72 96 Intake and Output 08/19/18 08/20/18 08/20/18 23:59 07:59 15:59 Intake Total 200 / 700 1100 / 1460 360 / 1460 Output Total 350 / 350 Balance -150 / 350 1100 / 1460 360 / 1460 Intake: Oral 200 / 200 1100 / 1460 360 / 1460 Output: Urine 350 / 350 Other: Meal Breakfast Percent of Meal Consumed 100% # Voids 1 1 Weight 84.4 kg Blood Glucose* 204 156 Patient Weight 08/20/18 23:59 Weight 84.4 kg General: Conversant, No Apparent Distress HEENT: Atraumatic, Normocephaly, Mucus Membranes Moist Neck: No JVD, Normal carotid pulses Cardiac: Reg Rate and Rhythm, Normal S1 and S2, No Murmur Lungs: Normal Breath Sounds, No Wheeze, Rales, Rhonchi Neuro: Alert and responsive, No focal deficits noted Abdomen: Soft, Non-Tender Skin: Other (right femoral access site healing well. No bleeding, hematoma or ecchymosis noted.) Musculoskeletal: No Chest Wall Tenderness Extremities: No Clubbing, No Cyanosis, No Edema, Normal Pulses Results 08/20/18 07:13 08/20/18 07:13 Lab Results 08/20/18 08/20/18 07:13 07:13 WBC 8.0 Hgb 14.0 Hct 44.4 Plt Count 217 Sodium 141 Potassium 4.2 Chloride 109 H Carbon Dioxide 22 L BUN 19 Creatinine 0.97 Glucose 187 H Calcium 9.3 Magnesium 2.0 - Imaging and Cardiology Echo: report reviewed Cardiac cath: report reviewed - EKG Interpretation EKG results cardiology: other (12 hr tele AVG HR 76, SR) Consult Discharge Plan - Plan Additional Instructions: RISK FACTORS: STOP SMOKING: If you smoke, STOP. Smoking or tobacco use significantly increases your risk of heart disease because nicotine causes the arteries to narrow or constrict. It also causes fats to stick to the artery. Your chances of having a heart attack are greatly increased if you continue to smoke. For more information, call the education line for smoking cessation 0-249-[id number] EAT A LOW FAT/CHOLESTEROL/SODIUM DIET: This diet may help reduce your chances of having a heart attack. LIFTING: Avoid lifting anything more than 10 pounds for 5-7 days Prior to straining, laughing, sneezing and/or coughing, apply manual pressure directly over insertion site. ACTIVITY: You may walk or climb stairs as tolerated You can resume sexual activity as tolerated In general, you are encouraged to engage in a minimum of 30 minutes or more of moderate intensity physical activity, such as brisk walking, daily or at least 3-4 times weekly BATHING Do not submerge the site into water (bath tub, hot tub, swimming pool) for 1 week. This can be a source for infection into the blood stream. You may shower after 24 hours SITE CARE: After 24 hours, you may remove the dressing and leave the site open to air. Keep the site clean and dry. Clean gently and pat dry. You can expect bruising and tenderness that gradually resolve within a week or two. Return to work as instructed per your physician Resume driving as instructed per physician Keep all scheduled follow up appointments Resume medications as instructed IMPORTANT: If prescribed a Platelet Aggregation Inhibitor such as, Plavix, Brilinta or Effient: Duration of therapy is minimum one year These medications are often used in combination with Aspirin in prevention of future heart attacks Never discontinue unless consult with your Director Talent Management STROKE (CVA) Risk factors for a stroke are: Age, cigarette smoking, diabetes, excessive alcohol consumption, family history, high blood pressure, overweight, physical inactivity, prior stroke, heart attack, diagnosis of carotid artery stenosis or other artery disease. Warning signs: Sudden numbness or weakness of the face, arm or leg; especially on one side of the body, sudden confusion, trouble speaking or understanding, sudden trouble seeing in one or both eyes, sudden trouble walking, dizziness, loss of balance or coordination, sudden severe headache with no cause. Call 911 or go to the Emergency Room. CONGESTIVE HEART FAILURE: If you have been diagnosed with Congestive Heart Failure (CHF) and your symptoms return, make an appointment with your physician Weigh yourself daily. Notify your physician if you have a weight gain of two or more pounds in one day or five or more pounds in one week. If you experience any difficulty breathing, please call 911 BLEEDING: Although the risk of bleeding is minimal, it can happen. If you have any bleeding from the site, apply firm pressure above the puncture site for 10-15 minutes. If the bleeding does not stop, continue manual pressure and call 911 Contact your physician if: You develop a fever greater than 101 degrees Fahrenheit Your site becomes reddened or has any drainage You have an increase in pain or burning at the site or if a large knot forms at the site. If you experience chest pain, shortness of breath, dizziness, or extreme tiredness, stop the activity and rest. Please notify your physicians office if you experience any of these symptoms and they are not relieved by rest please call 911! Referrals: Cisco Soria DO [Primary Care Provider] -
[2018-08-20] MEDS: Ranolazine 500 MG TAB.ER.12H PO SCH (10:19)
[2018-08-20] MEDS: Insulin LISPRO 300 UNITS/3 ML VIAL SQ SCH ×2 (10:20→12:16)
--- NOTE | 2018-08-20 10:44 | Discharge Summary ---
- NOTES TO OUTPATIENT PROVIDER Notes to Outpatient Provider: Cardiology sent outpatient referral to [facility] for intervention on chronic total occlusion of RCA Date of Encounter: 08/20/18 Time of Encounter: 10:40 - Discharge Diagnosis (1) CAD (coronary artery disease), [place] coronary artery Priority: Primary Status: Chronic Qualifiers: [place] vs. transplanted heart: [place] heart Associated angina: without angina Qualified Code(s): I25.10 - Atherosclerotic heart disease of [place] coronary artery without angina pectoris (2) Chronic kidney disease Priority: Secondary Status: Chronic Qualifiers: Chronic kidney disease stage: stage 3 (moderate) Qualified Code(s): N18.3 - Chronic kidney disease, stage 3 (moderate) (3) Tobacco abuse Priority: Secondary Status: Chronic (4) Diabetes mellitus Priority: Secondary Status: Chronic Qualifiers: Diabetes mellitus type: type 2 Qualified Code(s): E11.9 - Type 2 diabetes mellitus without complications Hospital course: Ms. Leonardo is a 58 year old female with history of coronary disease who presented with chest pain. Chest pain was previous to similar anginal pain. She is evaluated by cardiology who recommended left heart catheterization which found chronic total occlusion of the RCA and recommended increasing medical therapy as well as evaluation at tertiary care facility for treatment of her chronic total occlusion. 24 hours after the procedure patient was chest pain- free. Discussed with cardiology and will discharge patient home and they will make referral to [facility] for evaluation of treatment of her chronic total occlusion. Patient was agreeable to the plan. Patient will be discharged home in stable condition. Discharge discussed with: patient, family - Time Spent with Patient Total time spent providing and/or coordinating discharge services: - Discharge Medications Prescriptions: New Isosorbide MONOnitrate (24 HR) [Imdur] 120 mg PO DAILY #30 tab.er.24h Continued Ranolazine [Ranexa] 1,000 mg PO BID Ezetimibe [Zetia] 10 mg PO DAILY Topiramate [Topamax] 200 mg PO BID Pantoprazole Sodium [Protonix] 40 mg PO DAILY Amitriptyline [Elavil] 25 mg PO BID Potassium Chloride [K-Tab ER] 20 meq PO DAILY Cholecalciferol (Vitamin D3) [Vitamin D3] 1,000 unit PO DAILY Aspirin 81 mg PO DAILY #30 tab.chew Latanoprost [Xalatan] 1 drop BOTH EYES HS Lisinopril [Zestril] 5 mg PO HS Metoprolol Succinate [Toprol Xl] 25 mg PO DAILY glipiZIDE [Glipizide] 10 mg PO BID LORazepam [Ativan] 1 mg PO BID Rosuvastatin Calcium 20 mg PO HS Nitroglycerin 0.4 mg SL Q5MIN PRN tab.subl PRN Reason: Chest Pain Furosemide [Lasix] 40 mg PO DAILY Plavix 75 mg PO DAILY Discontinued Isosorbide MONOnitrate (24 HR) [Imdur] 60 mg PO DAILY Home Medications: Amitriptyline [Elavil] 25 mg PO BID 01/14/15 [History] Ezetimibe [Zetia] 10 mg PO DAILY 01/14/15 [History] Pantoprazole Sodium [Protonix] 40 mg PO DAILY 01/14/15 [History] Ranolazine [Ranexa] 1,000 mg PO BID 01/14/15 [History] Topiramate [Topamax] 200 mg PO BID 01/14/15 [History] Cholecalciferol (Vitamin D3) [Vitamin D3] 1,000 unit PO DAILY 07/07/16 [History] Potassium Chloride [K-Tab ER] 20 meq PO DAILY 07/07/16 [History] Aspirin 81 mg PO DAILY #30 tab.chew 07/09/16 [Rx] LORazepam [Ativan] 1 mg PO BID 03/17/18 [History] Latanoprost [Xalatan] 1 drop BOTH EYES HS 03/17/18 [History] Lisinopril [Zestril] 5 mg PO HS 03/17/18 [History] Metoprolol Succinate [Toprol Xl] 25 mg PO DAILY 03/17/18 [History] Rosuvastatin Calcium 20 mg PO HS 03/17/18 [History] glipiZIDE [Glipizide] 10 mg PO BID 03/17/18 [History] Nitroglycerin 0.4 mg SL Q5MIN PRN tab.subl 03/18/18 [Rx] Furosemide [Lasix] 40 mg PO DAILY 08/19/18 [History] Isosorbide MONOnitrate (24 HR) [Imdur] 120 mg PO DAILY #30 tab.er.24h 08/20/18 [Rx] Plavix 75 mg PO DAILY 08/20/18 [History] Allergies/Adverse Reactions: Allergy/AdvReac Type Severity Reaction Status Date / Time metformin Allergy Anaphylaxis Verified 08/19/18 00:37 sulfamethoxazole Allergy See Verified 08/19/18 00:37 [From Bactrim] Comments trimethoprim [From Bactrim] Allergy See Verified 08/19/18 00:37 Comments nitroglycerin AdvReac See Verified 08/19/18 00:37 [From Nitroglyn] Comments ticagrelor [From Brilinta] AdvReac Difficulty Verified 08/19/18 00:38 Breathing NOVACAINE Allergy See Uncoded 08/19/18 00:37 Comments Date of admission: 08/19/18 03:58 Primary care physician: Cisco Soria DO Consults: 08/19/18 05:29 Consult to Cardiology [CONS] Routine Comment: Consulting Provider: Cardiology [facility] Reason for Consult: Intermittent substernal chest pain with radiation to bilateral arms and jaw over past two weeks getting progressively worse. Feels similar to previous [place] presentations. Follows regularly with [facility]. Recently admitted for NSTEMI and had heart cath with stents in February 2018. Call Completed: No Discharging clinician: Quinten Robles Anticipated date of discharge: 08/20/18 - Constitutional Vitals: Temp Pulse Resp BP Pulse Ox 98.0 F 96 16 112/76 98 08/20/18 07:30 08/20/18 07:30 08/20/18 07:30 08/20/18 07:30 08/20/18 07:30 General appearance: Present: A&O X 3, pleasant, no acute distress Exam: . - Cardiovascular Cardiovascular exam: Present: RRR. Absent: gallop, rubs, systolic murmur - Patient Status Disposition: Home, Self-Care Condition: Fair Functional capacity at discharge: independent ambulation Overall status at discharge: patient is progressing back to baseline - Discharge Instructions Follow Up With: Cisco Soria DO [Primary Care Provider] - (1 week) Additional Instructions: RISK FACTORS: STOP SMOKING: If you smoke, STOP. Smoking or tobacco use significantly increases your risk of heart disease because nicotine causes the arteries to narrow or constrict. It also causes fats to stick to the artery. Your chances of having a heart attack are greatly increased if you continue to smoke. For more information, call the education line for smoking cessation 9-898-JVJJOMD EAT A LOW FAT/CHOLESTEROL/SODIUM DIET: This diet may help reduce your chances of having a heart attack. LIFTING: Avoid lifting anything more than 10 pounds for 5-7 days Prior to straining, laughing, sneezing and/or coughing, apply manual pressure directly over insertion site. ACTIVITY: You may walk or climb stairs as tolerated You can resume sexual activity as tolerated In general, you are encouraged to engage in a minimum of 30 minutes or more of moderate intensity physical activity, such as brisk walking, daily or at least 3-4 times weekly BATHING Do not submerge the site into water (bath tub, hot tub, swimming pool) for 1 week. This can be a source for infection into the blood stream. You may shower after 24 hours SITE CARE: After 24 hours, you may remove the dressing and leave the site open to air. Keep the site clean and dry. Clean gently and pat dry. You can expect bruising and tenderness that gradually resolve within a week or two. Return to work as instructed per your physician Resume driving as instructed per physician Keep all scheduled follow up appointments Resume medications as instructed IMPORTANT: If prescribed a Platelet Aggregation Inhibitor such as, Plavix, Brilinta or Effient: Duration of therapy is minimum one year These medications are often used in combination with Aspirin in prevention of future heart attacks Never discontinue unless consult with your International Student Advisor STROKE (CVA) Risk factors for a stroke are: Age, cigarette smoking, diabetes, excessive alcohol consumption, family history, high blood pressure, overweight, physical inactivity, prior stroke, heart attack, diagnosis of carotid artery stenosis or other artery disease. Warning signs: Sudden numbness or weakness of the face, arm or leg; especially on one side of the body, sudden confusion, trouble speaking or understanding, sudden trouble seeing in one or both eyes, sudden trouble walking, dizziness, loss of balance or coordination, sudden severe headache with no cause. Call 911 or go to the Emergency Room. CONGESTIVE HEART FAILURE: If you have been diagnosed with Congestive Heart Failure (CHF) and your symptoms return, make an appointment with your physician Weigh yourself daily. Notify your physician if you have a weight gain of two or more pounds in one day or five or more pounds in one week. If you experience any difficulty breathing, please call 911 BLEEDING: Although the risk of bleeding is minimal, it can happen. If you have any bleeding from the site, apply firm pressure above the puncture site for 10-15 minutes. If the bleeding does not stop, continue manual pressure and call 911 Contact your physician if: You develop a fever greater than 101 degrees Fahrenheit Your site becomes reddened or has any drainage You have an increase in pain or burning at the site or if a large knot forms at the site. If you experience chest pain, shortness of breath, dizziness, or extreme tiredness, stop the activity and rest. Please notify your physicians office if you experience any of these symptoms and they are not relieved by rest please call 911! Please follow-up with your primary care physician within one week. Please follow-up with [facility] as scheduled. Please increase her Imdur to 120 mg daily. Please return for any new or worsening symptoms, including chest pain that will not go away with rest or nitroglycerin. - Diet and Activity Activity: increase activity as tolerated Diet: diabetic diet, low fat, low cholesterol, low salt diet
[2018-08-20 11:50] VITALS: BP 111/73
== END 2018-08-20 13:20 | disposition home or self-care (01) ==
LOC: 3NENU 00:12 → EMEROOARM 00:12 → SUATTDRO 03:58 → 3NENU 04:07
PROVIDERS: ADMIT Family Medicine; ATTEND Internal Medicine